=== PATIENT | female | born 1935 | race Caucasian/White ===

== ENCOUNTER 2024-02-03 10:18 | Day surgery (SDC) | payer MEDICARE, SELFPAY ==
[2024-02-03 10:58] VITALS: BMI 18.3
[2024-02-03 11:08] VITALS: BP 133/55
--- NOTE | 2024-02-03 12:20 | W.ICD.CONTRA ---
Post ICD/SERVICE CENTER MANAGER-D
-
History of OK?: Yes
LV Function
Left ventricular function study result?: Ejection Fraction </= 35%
ACEI/ARB/ARNI
Patient already on ACEI/ARB/ARNI: Yes
Beta-Gisela
Patient already on Beta Gisela: Yes
--- NOTE | 2024-02-03 15:46 | ITS.CL.ICD ---
Golf Course Starter - ICD
Implantable Cardioverter Defibrillator
Procedure Report:
ICD GENERATOR CHANGE REPORT
Date of Procedure: February 03, 2024
Primary Care Provider: Dr. Moises Wells
Primary subway car repairer: Dr Yousif Bobo
PROCEDURES:
1. Removal of SKIP OPERATOR-ICD Generator, 2. SKIP OPERATOR-ICD Implant
INDICATION FOR PROCEDURE:
1. ICD at [facility]
2. CARDIOMYOPATHY
CHF Class 3
EF 30%
Life expectancy > 1 yr
'Time-out' was called and confirmed. The patient was prepped and draped in sterile fashion. Lidocaine with epi was used for local anesthesia. An incision was made along the previous incision and the device and leads were carefully dissected from
the pocket. Hemostasis was obtained with electrocautery. The leads were from the device header and tested using an external analyzer. The pocket was liberally irrigated with antibiotic solution. Once testing (see below) showed adequate
and stable function, the leads were connected to the generator header and the leads and generator were placed within the pocket. The pocket was closed in the typical fashion.
Antibiotic pouch placed.
EXISTING ICD Medtronic
IMPLANTED ICD: MEDTRONIC [id number], [id number]
EXISTING LEADS:
RA: Medtronic [id number] implanted February 12, 2017
RV: Medtronic [id number] implanted June 15, 2017
LV: Medtronic [id number] implanted June 15, 2017
DEVICE TESTING:
Sensing: RA 2.1 mV, RV (no escape)
Capture: RA (AF) V@ 0.4 ms, RV 0.75 V@ 0.4 ms, LV 1.5 V@ 0.4 ms,
Ohms: RA 507, RV 304, LV 551
FINAL PROGRAMMING:
Mika Pacing: VVIR 70-130 ppm
Tachy parameters:
VF: 188 bpm, ATP while charging, Shock
CONCLUSIONS:
1. Explant of ICD at [facility] [facility]
2. Successful implant ICD generator.
3. Normal function of ICD and leads at implant testing.
Of note there was some discussion regarding attempting to place the device sub-pectoral however she is so thin there there would essentially be no benefit cosmetically which was her concern. Therefore the device was placed back within its original
pocket.
RECOMMENDATIONS:
1. Observation and consideration for discharge home later today.
2. In-Office wound check in 7 - 10 days.
Copy to:
Dr. Moises Wells
Dr Yousif Bobo
[2024-02-03 15:54] VITALS: BP 121/66
[2024-02-03 16:09] VITALS: BP 128/68
[2024-02-03 16:24] VITALS: BP 142/97
[2024-02-03 16:35] VITALS: BP 137/65
== END 2024-02-03 16:59 | disposition home or self-care (01) ==
LOC: CATH 10:18
PROVIDERS: ATTENDING PHYSICIAN Internal Medicine Cardiovascular Disease; FAMILY PHYSICIAN Internal Medicine Geriatric Medicine; OTHER PHYSICIAN Internal Medicine Cardiovascular Disease
DX: Z45.02 Encounter for adjustment and management of automatic implantable cardiac defibrillator (principal); I42.8 Other cardiomyopathies; I11.0 Hypertensive heart disease with heart failure; I50.9 Heart failure, unspecified; I48.0 Paroxysmal atrial fibrillation; I12.9 Hypertensive chronic kidney disease with stage 1 through stage 4 chronic kidney disease, or unspecified chronic kidney disease; N18.30 Chronic kidney disease, stage 3 unspecified
CPT/HCPCS: 33264; C1882

== ENCOUNTER 2024-06-29 09:46 | Emergency (ER) | payer MEDICARE, SELFPAY ==
--- NOTE | 2024-06-29 09:49 | ED.GENMED ---
History of Present Illness
General
Chief Complaint: CVA/TIA Symptoms
Source: patient and ambulance crew
Exam Limitations: none
Time Seen by Provider: 06/29/24 09:48
History of Present Illness
History of Present Illness:
88yoF with a history of atrial fibrillation on Eliquis, CHF, pulmonary hypertension, hypertension, hyperlipidemia, CKD presenting via EMS as a prehospital stroke alert. Patient was speaking to her daughter this morning and her daughter started to
notice a left facial droop and slurred speech. Time of onset was 9:20am. Daughter immediately called EMS. Patient also states that her left side feels 'numb-vivi.' She denies any headache, dizziness, visual changes, weakness.
Past History
Past History
ED Past Medical History: Arrthythmia (afib), CHF, HTN, Hypercholesterolemia, [place], Other (mitral regurgitation) and Other (osteoarthritis, cataracts, glaucoma)
ED Past Surgical History: Cardiac (Mitral valve replacement, Pacemaker), Gynecological (hysterectomy), Orthopedic (bilateral knee surgery) and Other (lumpectomy)
Social History
Tobacco: Non-smoker
Alcohol: Daily (Wine 1 glass)
Drug: None
Personal:
Living: alone
Family History
Family History: Other
Phy Exam
General Physical Exam
General Presentation: well appearing and no apparent distress
General Skin: warm and dry
General Habitus: normal
General Mental: alert
ENT Exam
ENT Exam: normocephalic
Cardiovascular Exam
Cardiovascular Exam: regular rate/rhythm
Pulmonary Exam
Pulmonary Exam: lungs clear, no respiratory distress, no rales, no crackles and no rhonchi
Neurological Exam
Neurological Exam: alert and other (Minor L facial droop noted with mild dysarthria. No aphasia. CN 2-12 otherwise intact. Negative drift x4. )
[place] Coma Scale
Eye Opening: Spontaneous
Verbal Response: Oriented
Motor Response: Obeys Commands
GCS Total Score: 15
Skin Exam
Skin Exam: normal color and warm/dry
Psychiatric Exam
Psychiatric Exam: normal mood/affect
Scores
NIH Stroke Score
Level of Consciousness: 0 - Alert
LOC Questions: 0-Answers both correctly
LOC Commands: 0-Performs both correctly
Best Horizontal Gaze: 0-Normal
Visual Toscano: 0=Normal, no visual loss
Facial Palsy: 1=Minor paralysis
Motor - Right Arm: 0=No drift 10 seconds
Motor - Left Arm: 0=No drift 10 seconds
Motor - Right Le-No drift 5 seconds
Motor - Left Le-No drift 5 seconds
Limb Ataxia: 0-Absent
Sensation: 0-Normal
Best Language: 0-No aphasia
Dysarthria: 1-Mild slurring
Extinction and Inattention: 0-No abnormality
Total Score:: 2
Course
Orders/Labs/Results
Orders:
Orders
06/29/24 09:47
CT HEAD STROKE ALERT W/o Cont Urgent
Comment:
Reason For Exam: facial droop, L sided numbness
06/29/24 09:48
Electrocardiogram (*1) Stat
Reason for Study: Other
Other Reason for Exam: neuro symptoms
Bedside Glucose- Treatment ONCE
Cardiac Monitoring- Treatment ONCE
EKG- Treatment ONCE
06/29/24 09:50
NEUROLOGY CONSULT Urgent
Consulting Provider: Jose Gómez
Was physician already notified: Yes
Reason for consult: stroke alert
06/29/24 09:54
US Cerebrovascular Routine
Comment:
Reason For Exam: stenosis
06/29/24 10:09
Interrogate Pacemaker- Treatment ONCE
06/29/24 10:13
Cardiovascular Evaluation Urgent
Comment: ADD ON
Complete Blood Count/With Diff Urgent
Comprehensive Metabolic Panel Urgent
Erythrocyte Sed Rate Urgent
Comment: ADD ON
Ferritin Routine
Comment: ADD ON
Folate Routine
Comment: ADD ON
Free T4 Routine
PTT Urgent
Prothrombin Time Urgent
TSH Reflex To Free T4 Routine
Comment: ADD ON
Troponin I Urgent
Vitamin B12 Routine
Comment: ADD ON
06/29/24 12:12
Add On- LAB Routine
Comments:: Please add to today's labs or draw as routine
Tests Added?: TSH reflex, Ferritin, Folate, Vit. B12, ESR
06/29/24 13:46
Add On- LAB Urgent
Tests Added?: lipid profile
Abnormal Lab Results
06/29/24 06/29/24
09:49 10:13
RBC 3.36 L 10^6/uL
(4.20-5.40)
Hgb 10.8 L g/dL
(12.0-16.0)
Hct 32.9 L %
(37.0-47.0)
MCH 32.1 H pg
(27.0-31.0)
MCHC 32.8 L g/dL
(33.0-37.0)
Absolute Monos (auto) 0.7 H 10^3/uL
(0.1-0.6)
PT 16.1 H Sec
(11.4-14.6)
Chloride 108 H mmol/L
(98-107)
Carbon Dioxide 20 L mmol/L
(22-30)
BUN 21 H mg/dl
(7-17)
Glucose 113 H mg/dl
(70-99)
TSH (Reflex) 0.28 L uIU/ml
(0.47-4.68)
POC Glucose 108 H mg/dl
(70-99)
06/29/24 10:13
06/29/24 10:13
Vital Signs
Initial and Last Documented VS:
Initial Vital Signs
Pulse Resp Pulse Ox
70 18 98
06/29/24 09:58 06/29/24 09:58 06/29/24 09:58
Last Documented Vital Signs
Temp Pulse Resp BP Pulse Ox
98.3 F 70 15 137/67 98
06/29/24 10:08 06/29/24 11:30 06/29/24 11:30 06/29/24 13:55 06/29/24 13:55
MDM/Problems Addressed
Differential Diagnosis Includes:
88yoF here with a L facial droop and slurred speech that started <1 hour ago. Arrived as a prehospital stroke alert. Hx of afib on Eliquis. VSS. Mild facial droop and dysarthria noted on exam. No drift in the extremities. NIHSS 2. Differential
diagnosis includes but is not limited to: TIA, CVA, arrhythmia
Initial ED plan: Neurology at bedside on patient arrival. Will check CT head, EKG, and labs per protocol.
*EKG
Interpreted by ED Provider?: Yes
EKG Intrepretation Date: 06/29/24
Heart Rate: 70
Rate: normal
Rhythm: ventricular paced
Ischemia: no ischemia
*Critical Care Note
Total Time (30-74mins, 75-104mins- exclusive of procedures): Not Applicable
Update Note
Update Note:
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 Labs unremarkable and glucose within normal limits. EKG shows ventricular paced rhythm. No events on pacemaker interrogation. Carotid ultrasound obtained
per neurology recommendations. Ultrasound shows small amount of calcified plaque within the right and left carotids, stenosis less than 50%. On reassessment, symptoms have completely resolved. Daughter at bedside confirms that her speech is now
normal. Discussed plan with neurology. Suspect TIA. Patient is medically optimized as she is currently on a statin and Eliquis. Her ICD likely precludes MRI. Per neurology, no indication for hospitalization at this time. Will discharge with
plan for outpatient PCP and neurology follow-up. Strict ED return precautions discussed including any new or worsening neurologic symptoms. Patient and daughter in agreement with plan. She was discharged in stable condition.
ED Attending Note
-
Portions of this chart may have been created with voice recognition software.� Occasional wrong word or��sound alike� substitutions may have occurred due to the inherent limitations of voice recognition software.
Discharge Plan
Departure
Patient Disposition: Home (Routine Discharge)
Date of Disposition: 06/29/24
Time of Disposition: 13:21
Patient with high blood pressure during this ER visit?: No
Discharge Problem:
Facial droop
Instructions: Transient Ischemic Attack ED
Prescriptions:
No Action
latanoprost 1 DROP drops
1 drp BOTH EYES HS
multivitamin with folic acid [Tab-A-Angelina] 1 TABLET tablet
1 tab PO NOON
folic acid 1 MG tablet
1 mg PO DAILY 0RF
amoxicillin 500 MG capsule
500 mg PO BID
Patient Comments:
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
atorvastatin 20 MG tablet
20 mg PO QPM 30 Days Qty: 30 0RF
carvedilol 6.25 MG tablet
6.25 mg PO TID 30 Days Qty: 90 0RF
biotin 1 mg Tablet
1 mg PO NOON
cholecalciferol (vitamin D3) [Vitamin D3] 25 mcg (1,000 unit) Tablet
25 mcg PO NOON
furosemide 40 MG tablet
20 mg PO DAILY
spironolactone 25 MG tablet
25 mg PO QPM
lisinopril 2.5 MG tablet
2.5 mg PO QPM
loperamide 2 mg Capsule
2 mg PO Q4H PRN (Reason: diarrhea)
mesalamine 1.2 gram Tablet,Delayed Release (Dr/Ec)
9.6 g PO QPM
melatonin 5 mg Tablet
5 mg PO HS
apixaban 2.5 mg Tablet
2.5 mg PO BID
potassium chloride 20 mEq Tablet Extended Release
10 meq PO DAILY
tramadol 50 MG tablet
50 mg PO BID
acetaminophen [Pain Relief ES (acetaminophen)] 500 mg tablet
1,000 mg PO QID PRN (Reason: mild pain)
Referrals:
Jose Gómez MD [Active] -
Yousif Bobo MD [Family Provider] -
Activity Restrictions/Additional Instructions:
Continue taking Eliquis and atorvastatin.
Please call your family doctor to make a follow-up appointment in the next 2-3 days. You should also follow-up with neurology.
Return to the ER immediately with any new or worsening symptoms.
Interventions
Interventions:
*Risk Screen - Suicide Last Done: 06/29/24 09:58
*General Assessment Last Done: 06/29/24 09:58
*Neglect/Abuse Screening Last Done: 06/29/24 09:58
ED- Fall Risk Assessment Last Done: 06/29/24 09:58
*ED COVID-19 Vaccine History Last Done: 06/29/24 10:07
*Nursing Disposition Last Done: 06/29/24 14:02
ED- Cardiac Assessment Last Done: 06/29/24 09:58
ED- Neurological Assessment Last Done: 06/29/24 09:58
ED- Pulmonary Assessment Last Done: 06/29/24 09:58
ED Swallowing Screen Last Done: 06/29/24 13:00
Discharge Date and Time
Discharge Date/Time: 06/29/24 14:03
Print Language: KOREAN
--- NOTE | 2024-06-29 09:50 | CON.NEURO ---
Neuro Assessment/Plan
Assessment
Acute onset of left facial weakness with concomitant slurred speech, resolved in a patient utilizing apixaban routinely.
Most likely secondary to transient ischemic attack based on the patient's cardiovascular risk factors as well as absence of additional concomitant symptoms
Patient was not a candidate for either tenecteplase or intra-arterial thrombectomy due to NIH stroke scale less than 6
Plan
Continue the patient's usual apixaban based on minimal symptoms
Check carotid ultrasound for significant stenosis that may require surgical remediation
No clear need at this time for rehabilitation evaluations or treatment
Check a lipid profile, continue atorvastatin, increase dosing from 20 mg if LDL greater than 70
Will follow pending results
Consultation
Order
Date of Consultation: 06/29/24
Requesting Provider: Emergency department provider
Reason for Consult: Stroke alert
Subjective/Objective
Subjective Data
Date of Service: June 29, 2024
Patient presented to this [facility] emergency department by EMS due to sudden onset of left facial weakness and slurred speech which has resolved with the exception of a sense of left-sided facial numbness which is persistent. The patient has not
had a prior episode which is similar. She is not aware of factors which improve or worsen this problem. There are no known modifying factors. There have been no new changes in medical history.
Objective Data
Patient Allergies
No Known Allergies Allergy (Verified 02/03/24 11:00)
Review of Systems
-
History Source: Patient
All other systems: Reviewed and negative
EENT: Negative Swallowing Difficulty
Respiratory: Negative Trouble Breathing
Cardiac: Negative Chest Pain
Musculoskeletal: Negative Back Pain or Neck Pain
Neuro: Negative Dizzy or Headache
Physical Exam
-
General: No Apparent Distress and Appears Stated Age
Eyes: OU Absent Papilledema, Round OU, Rocky Conjunctivae and No Ptosis
HEENT: Anicteric and Moist Mucous Membranes
Neck: Full Range of Motion
Respiratory: No Dyspnea
Cardiac: No JVD
GI: Non-distended
Skin: Unremarkable
Extremities: No Clubbing, No Cyanosis and No Edema
Psych: Intact Judgement/Insight
Extended Neurological Exam
Mood & Affect: Mood Unremarkable and Affect Unremarkable
Attention Span & Concentration: Awake, Alert, Interactive and No Difficulty with 2 Step Request
Memory: Unremarkable
Tremor: Hand Tremor Absent and Head Tremor Absent
Speech: Quality Unremarkable and Quantity Unremarkable
Cranial Nerve II: Left Eye: Pupillary Reactivity Unremarkable, Pupillary Size Unremarkable and Visual Toscano Intact
Cranial Nerve II: Right Eye: Pupillary Reactivity Unremarkable, Pupillary Size Unremarkable and Visual Toscano Intact
Cranial Nerves III, IV, : Extraocular Movement: Extraocular Movement Full in all Directions
Cranial Nerve VII: Facial Symmetry: Normal Facial Symmetry
Cranial Nerve VIII: Hearing: Unremarkable Hearing to Normal Conversational Volume
Cranial Nerves IX, X: Palate Movement: Palate Elevation Symmetric
Cranial Nerve XI: Shoulder Shrug: Unremarkable
Cranial Nerve XII: Tongue Protusion: Midline
Muscle Strength, Overall: Full Throughout
Muscle Bulk & Tone: Bulk Unremarkable and Tone Unremarkable
Pronator Drift: No Drift in Upper Extremities
Touch Sensation: Unremarkable
Coordination: [id number] Testing Unremarkable
Data Reviewed
-
CT Head: Report Reviewed and Image Reviewed
Labs: Report Reviewed
Reviewed with: Nurse, Nurse Practioner, Physician Candy Maker and Patient
Old Records: Summarized
Medications
-
Home Medications
�Medication �Instructions �Recorded
latanoprost 0.005 % eye drops 1 drp BOTH EYES HS Eye condition 02/09/17
multivitamin with folic acid 400 1 tab PO NOON Supplement 06/08/17
mcg tablet (Tab-A-Angelina)
folic acid 1 mg tablet 1 mg PO DAILY Supplement 04/18/21
amoxicillin 500 mg capsule 500 mg PO BID Infection 08/05/21
atorvastatin 20 mg tablet 20 mg PO QPM 30 days #30 tabs 08/09/21
carvedilol 6.25 mg tablet 6.25 mg PO TID Blood pressure 30 08/09/21
days #90 tabs
biotin 1 mg tablet 1 mg PO NOON Supplement 11/09/22
cholecalciferol (vitamin D3) 25 25 mcg PO NOON Supplement 11/09/22
mcg (1,000 unit) tablet (Vitamin
D3)
furosemide 40 mg tablet 20 mg PO DAILY Fluid 11/09/22
Retention/Swelling
lisinopril 2.5 mg tablet 2.5 mg PO QPM Blood Pressure 11/10/22
spironolactone 25 mg tablet 25 mg PO QPM Fluid 11/10/22
Retention/Swelling
acetaminophen 500 mg tablet (Pain 1,000 mg PO QID PRN mild pain 02/03/24
Relief Extra Strength
(acetaminophen))
apixaban 2.5 mg tablet 2.5 mg PO BID 02/03/24
loperamide 2 mg capsule 2 mg PO Q4H PRN diarrhea 02/03/24
melatonin 5 mg tablet 5 mg PO HS 02/03/24
mesalamine 1.2 gram tablet,delayed 9.6 g PO QPM 02/03/24
release
potassium chloride 20 mEq 10 meq PO DAILY 02/03/24
tablet,extended release
tramadol 50 mg tablet 50 mg PO BID Neurological Condition 02/03/24
Past History
Past History
ED Past Medical History: Arrthythmia (afib), CHF, HTN, Hypercholesterolemia, [place], Other (mitral regurgitation) and Other (osteoarthritis, cataracts, glaucoma)
ED Past Surgical History: Cardiac (Mitral valve replacement, Pacemaker), Gynecological (hysterectomy), Orthopedic (bilateral knee surgery) and Other (lumpectomy)
Social History
Tobacco: Non-smoker
Alcohol: Daily (Wine 1 glass)
Drug: None
Personal:
Living: alone
Family History
Family History: Other
[2024-06-29 09:51] LABS: Glucose - Point of Care 108 mg/dl (70-99)
[2024-06-29 09:58] VITALS: BMI 17.6
[2024-06-29 10:29] LABS: % Basophils 0.8 % (0-2); % Eosinophils 0.9 % (0-6); % Immature Granulocytes 0.1 % (0-0.5); % Lymphocytes 21.7 % (20.5-51.1); % Monocytes 9.3 % (1.7-9.3); % Neutrophils 67.2 % (42.2-75.2); Absolute Basophils 0.1 10^3/uL (0-0.2); Absolute Eosinophils 0.1 10^3/uL (0-0.7); Absolute Lymphocytes 1.6 10^3/uL (1.2-3.4); Absolute Monocytes 0.7 10^3/uL (0.1-0.6); Hematocrit 32.9 % (37.0-47.0); Hemoglobin 10.8 g/dL (12.0-16.0); Mean Corp Hgb Conc. 32.8 g/dL (33.0-37.0); Mean Corpuscular Hgb 32.1 pg (27.0-31.0); Mean Corpuscular Volume 97.9 fL (81.0-99.0); Mean Platelet Volume 9.6 fL (7.4-10.4); Nucleated Red Blood Cells % 0 %; Platelet Count 158 10^3/uL (130-400); Red Blood Cell Count 3.36 10^6/uL (4.20-5.40); White Blood Cell Count 7.4 10^3/uL (4.8-10.8)
[2024-06-29 10:34] LABS: APTT 30.9 Sec (23.4-35.0); INR 1.27; PT 16.1 Sec (11.4-14.6)
[2024-06-29 10:38] LABS: ALT (SGPT) 18 U/L (0-35); AST (SGOT) 23 U/L (14-36); Albumin 3.8 g/dl (3.5-5.0); Alkaline Phosphatase 84 U/L (38-126); Blood Urea Nitrogen 21 mg/dl (7-17); Calcium 9.8 mg/dl (8.4-10.2); Carbon Dioxide 20 mmol/L (22-30); Chloride 108 mmol/L (98-107); Estimated Creatinine Clearance 31 ml/min; Glucose 113 mg/dl (70-99); Potassium 4.6 mmol/L (3.5-5.1); Sodium 138 mmol/L (135-145); Total Bilirubin 0.5 mg/dl (0.2-1.3); Total Protein 6.4 g/dl (6.3-8.2); eGFR 54.19
[2024-06-29 10:49] LABS: Troponin I 0.012 ng/ml
[2024-06-29 11:00] VITALS: BP 119/64
[2024-06-29 13:55] VITALS: BP 137/67
[2024-06-29 14:19] LABS: Erythrocyte Sed Rate 6 mm/hour (0-20)
[2024-06-29 14:24] LABS: HDL Cholesterol 73 mg/dl; LDL Cholesterol, Calculated 51 mg/dl; Total Cholesterol 137 mg/dl (50-199); Triglyceride 68 mg/dl (10-149); Very Low Density Lipoprotein 13 mg/dl (0-30)
[2024-06-29 15:50] LABS: TSH Reflex To Free T4 0.28 uIU/ml (0.47-4.68)
[2024-06-29 16:17] LABS: Free T4 1.48 ng/dl (0.78-2.19)
[2024-06-29 16:25] LABS: Folate > 20.0 ng/ml (2.76-20); Vitamin B12 708 pg/ml (239-931)
== END 2024-06-29 14:03 | disposition home or self-care (01) ==
LOC: EMR 09:46
PROVIDERS: Physician Assistant; CONSULT PHYSICIAN Psychiatry & Neurology Neurology; EMERGENCY PHYSICIAN Emergency Medicine; FAMILY PHYSICIAN Internal Medicine Geriatric Medicine
DX: R29.810 Facial weakness (principal); I48.91 Unspecified atrial fibrillation; I13.0 Hypertensive heart and chronic kidney disease with heart failure and stage 1 through stage 4 chronic kidney disease, or unspecified chronic kidney disease; I50.9 Heart failure, unspecified; N18.9 Chronic kidney disease, unspecified; E78.00 Pure hypercholesterolemia, unspecified; I27.20 Pulmonary hypertension, unspecified; M19.90 Unspecified osteoarthritis, unspecified site; Z79.01 Long term (current) use of anticoagulants; Z86.73 Personal history of transient ischemic attack (TIA), and cerebral infarction without residual deficits; Z90.710 Acquired absence of both cervix and uterus; Z95.0 Presence of cardiac pacemaker; Z95.2 Presence of prosthetic heart valve; Z96.653 Presence of artificial knee joint, bilateral
CPT/HCPCS: 99284; 70450; 80053; 80061; 82607; 82728; 82746; 82962; 84439; 84443; 84484; 85025; 85610; 85652; 85730; 93005; 93880

== ENCOUNTER 2024-10-08 13:35 | Inpatient (IN) | payer MEDICARE, SELFPAY ==
[2024-10-08] VITALS (16 sets, daily range): BP systolic 94–147; BP diastolic 29–78; BMI 16.1; BMI 15.7
[2024-10-08 10:33] LABS: % Basophils 0.2 % (0-2); % Eosinophils 0.1 % (0-6); % Immature Granulocytes 0.3 % (0-0.5); % Lymphocytes 5.4 % (20.5-51.1); % Monocytes 5.1 % (1.7-9.3); % Neutrophils 88.9 % (42.2-75.2); Absolute Lymphocytes 0.7 10^3/uL (1.2-3.4); Absolute Monocytes 0.6 10^3/uL (0.1-0.6); Absolute Neutrophils 10.9 10^3/uL (1.4-6.5); Hematocrit 33.1 % (37.0-47.0); Hemoglobin 11.2 g/dL (12.0-16.0); Mean Corp Hgb Conc. 33.8 g/dL (33.0-37.0); Mean Corpuscular Hgb 32.3 pg (27.0-31.0); Mean Corpuscular Volume 95.4 fL (81.0-99.0); Mean Platelet Volume 9.5 fL (7.4-10.4); Nucleated Red Blood Cells % 0 %; Platelet Count 222 10^3/uL (130-400); Red Blood Cell Count 3.47 10^6/uL (4.20-5.40); Red Cell Dist. Width 14.7 % (11.5-14.5); White Blood Cell Count 12.3 10^3/uL (4.8-10.8)
[2024-10-08 10:41] LABS: Carbon Dioxide 17 mmol/L (22-30)
[2024-10-08 10:52] LABS: ALT (SGPT) 15 U/L (0-35); AST (SGOT) 20 U/L (14-36); Albumin 3.5 g/dl (3.5-5.0); Alkaline Phosphatase 117 U/L (38-126); Blood Urea Nitrogen 39 mg/dl (7-17); Calcium 10.2 mg/dl (8.4-10.2); Chloride 107 mmol/L (98-107); Glucose 99 mg/dl (70-99); Potassium 5.2 mmol/L (3.5-5.1); Sodium 136 mmol/L (135-145); Total Bilirubin 0.7 mg/dl (0.2-1.3); Total Protein 6.4 g/dl (6.3-8.2); eGFR 48.33
--- NOTE | 2024-10-08 11:15 | ED.GENMED ---
History of Present Illness
General
Chief Complaint: Weakness
Source: patient, records and family
Time Seen by Provider: 10/08/24 11:05
History of Present Illness
History of Present Illness:
88-year-old female with past medical history of permanent A-fib status post Medtronic pacemaker placement, previous endocarditis, valvular disease, cardiomyopathy, GERD, hypothyroidism presenting to the emergency department from her independent
living at [facility] for evaluation of cough, shortness of breath and generalized weakness/fatigue that have been ongoing for the last 2 days. Patient states it feels as if she 'just has a minor cold' but family notes that she has had an
increased work of breathing and appears dyspneic with exertion or with speaking. Patient does note that another resident who she normally plays peanuckle with had a little cold this past week. She denies any known fevers, chills, rigors, current
chest pain, palpitations, diaphoresis, lower extremity edema or any other concerns. No medications prior to arrival.
Past History
Past History
ED Past Medical History: Arrthythmia (afib), CAD, CHF, HTN, Hypercholesterolemia, [place], Valvular disease, Hypothyroidism, Other (mitral regurgitation) and Other (osteoarthritis, cataracts, glaucoma)
ED Past Surgical History: Cardiac (Mitral valve replacement, Pacemaker), Gynecological (hysterectomy), Orthopedic (bilateral knee surgery) and Other (lumpectomy)
Social History
Tobacco: Non-smoker
Alcohol: Occasional (Wine 1 glass)
Drug: None
Personal:
Living: assisted living
Family History
Family History: Other
Review of Systems
Review of Systems
All Other Systems: ROS reviewed and negative except as documented in HPI and ROS
Phy Exam
Physical Exam
Physical Exam:
GENERAL: Alert , in no apparent distress but patient does have an increased work of breathing and wet nonproductive coughing throughout the exam
EYE: Clear conjunctiva
NECK: Supple
ENT: o/p clr, mmm.
CARDIAC: Regular rate and rhythm .
LUNGS: Rhonchorous lung sounds throughout but more prominent in the right mid to lower lung zones posteriorly, faint wheezing
ABDOMEN: Soft, without focal tenderness, no r/g, no cvat
NEUROLOGICAL: Alert and oriented
SKIN: Warm and dry, skin intact.
MUSCULOSKELETAL: No edema, hyperpigmentation from peripheral vascular disease is baseline per patient and family
PSYCH: Normal and appropriate interaction.
Scores
Heart Failure Risk
Heart Failure Risk Score: Not Applicable
Heart Score for Chest Pain Patients
STEMI patient?: Not applicable
Withdrawal Assessment of Alcohol
Withdrawal Assessment Completed?: Not applicable
Course
Orders/Labs/Results
Orders:
Orders
10/08/24 10:06
COVID-19 Antigen Urgent
Source: Nasal Swab
Complete Blood Count/With Diff Urgent
Comprehensive Metabolic Panel Urgent
Influenza A+B Rapid Molecular Urgent
ILIR Source: Nasal Swab
Specimen Description:
10/08/24 10:30
CR Chest - 2 Views Urgent
Comment:
Reason For Exam: cough + weakness
10/08/24 11:14
Ipratropium/Albuterol Sulfate [Duoneb] 3 ml INH R NOW ONE
Tramadol HCl [Ultram] 50 mg PO NOW STA
10/08/24 11:16
Interrogate Pacemaker- Treatment ONCE
10/08/24 11:18
NT-proBNP Urgent
Troponin I Urgent
10/08/24 11:20
Electrocardiogram (*1) Urgent
Reason for Study: Shortness of Breath
EKG- Treatment ONCE
10/08/24 11:43
CefTRIAXone [Rocephin] 1,000 mg IV NOW STA
Doxycycline [Vibramycin] 100 mg PO NOW STA
10/08/24 12:51
Admit/Transfer Patient As Directed
Co-Sign Provider:
Level of Care: Inpatient admission
Assign to:: Telemetry
Physician / Group: hospitalist
Diagnosis: community acquired pneumonia
Reason for Telemetry: AICD/pacer dependent
Date to Stop Telemetry: 10/11/24
Time to Stop Telemetry: 11:00
Reason for Hospitalization: Community acquired pneumonia, IV antibiotics
Expected length of stay greater than two midnights?: Yes
ELOS- Estimated Length of Stay in days: 3
I certify the patient meets the requirements for IP care: Yes
10/08/24 12:52
PRN Pain Medication Management As Directed
May give lesser potent ordered pain med per pt: Yes
preference::
Protocol:: Medication orders for pain may be administered in a
manner that supports deferring to patient preference
when the pt is:
- Requesting an ordered lesser potent pain medication.
Least to most potent pain medications are defined
as: acetaminophen < NSAID < tramadol < opioids
(morphine, oxycodone, hydromorphone).
- Requesting a lesser dose of the same medication IF
ORDERED.
- Requesting a less intrusive route of administration
if both routes are prescribed by the provider (PO <
IV).
10/08/24 12:54
Code Status As Directed
Resuscitation Status: Do not resuscitate
Reached after discussion with pt or family/Healthcare POA: Yes
DNR Bracelet Application ONCE
10/08/24 16:45
Activity As Directed
Activity Level: As Tolerated
Notify MD As Directed
Notify physician if: Bridge Admission orders placed.
Notify attending physician:
-- upon arrival to unit
OR
-- when patient is identified as an ED hold
Vital Signs As Directed
Frequency: Per unit guidelines
O2 Therapy [RESP] Routine
Titrate/Wean O2 to maintain O2 sat greater than (%): 92
10/08/24 20:00
Apixaban [Eliquis] 2.5 mg PO BID
10/11/24 11:00
DC Protocol for Telemetry ONCE
Abnormal Lab Results
10/08/24
10:06
WBC 12.3 H 10^3/uL
(4.8-10.8)
RBC 3.47 L 10^6/uL
(4.20-5.40)
Hgb 11.2 L g/dL
(12.0-16.0)
Hct 33.1 L %
(37.0-47.0)
MCH 32.3 H pg
(27.0-31.0)
RDW 14.7 H %
(11.5-14.5)
Absolute Neuts (auto) 10.9 H 10^3/uL
(1.4-6.5)
Absolute Lymphs (auto) 0.7 L 10^3/uL
(1.2-3.4)
Neutrophils % 88.9 H %
(42.2-75.2)
Lymphocytes % 5.4 L %
(20.5-51.1)
Potassium 5.2 H mmol/L
(3.5-5.1)
Carbon Dioxide 17 L mmol/L
(22-30)
BUN 39 H mg/dl
(7-17)
Creatinine 1.1 H mg/dL
(0.6-1.0)
10/08/24 10:06
10/08/24 10:06
Vital Signs
Initial and Last Documented VS:
Initial Vital Signs
Temp Pulse Resp BP Pulse Ox
97.9 F 71 20 131/56 96
10/08/24 09:56 10/08/24 09:56 10/08/24 09:56 10/08/24 09:56 10/08/24 09:56
Last Documented Vital Signs
Temp Pulse Resp BP Pulse Ox
97.9 F 71 17 147/67 96
10/08/24 09:56 10/08/24 16:30 10/08/24 16:30 10/08/24 16:00 10/08/24 16:30
MDM/Problems Addressed
Differential Diagnosis Includes:
Pneumonia, bronchitis, asthma/COPD, COVID/flu or other viral etiology, CHF exacerbation, atypical ACS
MDM/Problems Addressed:
88-year-old female presenting to the ER for evaluation of gradually worsening shortness of breath and URI like symptoms over the last 2 to 3 days. Known sick contact at her independent living facility. Afebrile here however mildly hypoxic and
tachycardia at time of my exam. Placed on 2 L nasal cannula with patient reporting increased comfort on 2 L. Labs initiated on arrival show a leukocytosis of 12,000 as well as bicarb of 17 and a mild BRITTA. COVID and flu testing pending. Chest
x-ray ordered. Patient normally takes 50 mg of tramadol for chronic back pain but did not take this this morning so is requesting a dose of this. Will also treat with DuoNeb. Anticipate admission.
Chronic conditions affecting care: CAD, Cardiomyopathy and Arrhythmia
*Radiology
Radiology exam reviewed: preliminary read by ED provider (Right lower lobe pneumonia)
*Pulse Oximetry
Patient hypoxic: yes
*French Weaver Interpretation
Rate: normal
Rhythm: ventricular paced
*Critical Care Note
Total Time (30-74mins, 75-104mins- exclusive of procedures): Not Applicable
Data Reviewed
Review of Other/Old Records Reveals: Labs, Records and Progress Notes
Patient Management
Discussion with other providers: Hospitalist
Escalation/DeEscalation of care consider admission/obs:
Patient's chest x-ray shows a right lower lobe pneumonia. Given her age combined with chronic medical conditions as well as hypoxia will admit for antibiotic treatment and supportive care. Hospitalist team to admit.
ED Attending Note
-
Portions of this chart may have been created with voice recognition software.� Occasional wrong word or��sound alike� substitutions may have occurred due to the inherent limitations of voice recognition software.
Discharge Plan
Departure
Patient Disposition: Admit
Date of Disposition: 10/08/24
Time of Disposition: 11:50
Presentation/result/management discussed w/ accepting MD/DO: Hospitalist
Discharge Problem:
Pneumonia, BRITTA (acute kidney injury)
Interventions
Interventions:
*Risk Screen - Suicide Last Done: 10/08/24 09:56
*General Assessment Last Done: 10/08/24 09:56
*Neglect/Abuse Screening Last Done: 10/08/24 09:56
*ED- Fall Risk Assessment Last Done: 10/08/24 11:13
*ED COVID-19 Vaccine History Last Done: 10/08/24 09:56
ED- Cardiac Assessment Last Done: 10/08/24 11:14
ED- Neurological Assessment Last Done: 10/08/24 11:14
ED- Pulmonary Assessment Last Done: 10/08/24 11:14
[2024-10-08] MEDS: DUONEB 3 ML INH (11:21)
[2024-10-08] MEDS: ULTRAM 50 MG PO ×2 (11:21→19:08)
[2024-10-08 11:46] LABS: COVID-19 Antigen Negative (Negative)
[2024-10-08 11:50] LABS: Troponin I < 0.012 ng/ml
[2024-10-08] MEDS: ROCEPHIN 1000 MG IV (11:57)
[2024-10-08] MEDS: VIBRAMYCIN 100 MG PO ×2 (11:57→19:08)
[2024-10-08 12:07] LABS: NT-proBNP 4460 pg/ml
--- NOTE | 2024-10-08 13:56 | W.PN.UPDATE ---
Update Note
Progress Note Update
Seen and examined by me independently in collaboration with the auditor medical claims .
Past medical history/social history/medication/allergies reviewed.
Lab data and imaging data reviewed.
Patient without any underlying primary lung disease presents with a week of respiratory symptoms which included cough with productive phlegm and shortness of breath. No prior history of pneumonia. Denies any swallowing difficulty. Prior history
of infective endocarditis on chronic amoxicillin. Has a history of chronic heart failure but no increased weight or lower extremity edema. In fact weight has gone down lately.
Afebrile and not tachycardic but she has coarse crackles in the right base without wheeze. White count is elevated. Chest x-ray shows right middle lobe pneumonia.
All symptomatology concerning for community-acquired pneumonia involving right middle lobe.
Admit the telemetry with history of heart failure with reduced EF and ICD in place.
Continue ceftriaxone and doxycycline initiated in the ER. Will obtain blood and sputum culture. She is COVID and flu negative. Will follow clinical improvement with community-acquired pneumonia antibiotics.
Clinically she seems to be compensated from a heart failure standpoint-no lower extremity edema, no weight gain, and no JVD evident. Continue with the diuretic regimen. Follow weights daily.
CODE STATUS-patient made it clear that her wishes would be DNR and event of cardiac arrest and this was confirmed by the daughter at bedside in the ER.
--- NOTE | 2024-10-08 14:25 | HPS.HSE ---
Family Physician
-
Family Physician: Yousif Bobo
Chief Complaint
-
Cough and dyspnea
History of Present Illness
88 y/o female with past medical history of permanent A-fib and HFrEF status post ICD placement, previous endocarditis on amoxicillin 500 bid, CKD stage III and hypothyroidism presenting to the emergency department from her independent living at
[facility] for evaluation of productive cough, shortness of breath and generalized weakness/fatigue that have been ongoing for the past week, progressed since the past 2 days. Family notes that she has had increased work of breathing and
appears dyspneic with exertion or with speaking. Patient does note that another resident at [facility] had URI symptoms. She denies any known fevers, chills, rigors, current chest pain, palpitations, diaphoresis, lower extremity edema, nausea, vomiting,
diarrhea, urinary symptoms or any other concerns. No prior history of pneumonia.
Medical History
Past Medical History
Past Medical History: Reports Arrhythmia, CAD, CHF, HTN, Hypercholesterolemia, Hypothyroidism, [place], Renal Failure, Valvular Disease and Other (osteoarthritis, cataracts, glaucoma, Anemia of Chronic Disease, CKD Stage III)
Past Surgical History: Reports Cardiac (ICD, mitral valve replacement), Gynocological (hysterectomy), Orthopedic (Bilateral Total Knee Replacement) and Other (Partial Thyroidectomy, Bilateral Lumpectomy)
Social History
Tobacco: Non-smoker
Alcohol: Daily (One glass of wine)
Living: Alone
Family History
Family History: Not pertinent
Allergies / Home Medications
Allergies reflects when Allergies were last updated in [employer].
Home Medications with original date entered in [employer]
Allergy/Medication List:
Allergies
Allergy/AdvReac Type Severity Reaction Status Date / Time
No Known Allergies Allergy Verified 10/08/24 10:00
Home Medications
latanoprost 0.005 % eye drops 1 drp BOTH EYES HS Eye condition 02/09/17
multivitamin with folic acid 400 mcg tablet (Tab-A-Angelina) 1 tab PO NOON Supplement 06/08/17
folic acid 1 mg tablet 1 mg PO DAILY Supplement 04/18/21
amoxicillin 500 mg capsule 500 mg PO BID Infection 08/05/21
atorvastatin 20 mg tablet 20 mg PO QPM 30 days #30 tabs 08/09/21
carvedilol 6.25 mg tablet 6.25 mg PO TID Blood pressure 30 days #90 tabs 08/09/21
biotin 1 mg tablet 1 mg PO NOON Supplement 11/09/22
cholecalciferol (vitamin D3) 25 mcg (1,000 unit) tablet (Vitamin D3) 25 mcg PO NOON Supplement 11/09/22
lisinopril 2.5 mg tablet 2.5 mg PO QPM Blood Pressure 11/10/22
spironolactone 25 mg tablet 25 mg PO QPM Fluid Retention/Swelling 11/10/22
apixaban 2.5 mg tablet 2.5 mg PO BID 02/03/24
loperamide 2 mg capsule 2 mg PO DAILYPRN PRN diarrhea 02/03/24
melatonin 5 mg tablet 5 mg PO HS 02/03/24
mesalamine 1.2 gram tablet,delayed release 4.8 g PO QPM 02/03/24
potassium chloride 20 mEq tablet,extended release 10 meq PO DAILY 02/03/24
tramadol 50 mg tablet 50 mg PO BID Neurological Condition 02/03/24
acetaminophen 500 mg tablet 1,000 mg PO Q4H PRN mild pain 10/08/24
budesonide 3 mg capsule,delayed,extended release 3 mg PO DAILY 10/08/24
furosemide 20 mg tablet 20 mg PO DAILY 10/08/24
Review of Systems
-
History Source: Patient and Family
Constitutional: Denies Fever or Chills
EENT: Reports No Symptoms
Respiratory: Reports Cough and Trouble Breathing
Cardiac: Reports No Symptoms; Denies Chest Pain
Abdomen/GI: Reports No Symptoms
: Reports No Symptoms
Musculoskeletal: Reports No Symptoms
Skin: Reports No Symptoms
Neurological: Reports No Symptoms
Endocrine: Reports No Symptoms
Hematologic/Lymphatic: Reports No Symptoms
Psych: Reports No Symptoms
Physical Exam
Vital Signs
Vital Signs
Temp Pulse Resp BP Pulse Ox
97.9 F 70 24 101/48 95
10/08/24 09:56 10/08/24 13:30 10/08/24 13:30 10/08/24 13:00 10/08/24 13:30
Physical Exam
General: Well Developed, Well Nourished, Comfortable, Conversant (desats to high 80s while speaking) and Cachectic
HEENT: NormoCephalic
Respiratory: Crackles (Throughout the right lung, more pronounced at the base) and Non Labored Respirations; No Accessory Resp Muscle Use
Cardiac: S1/S2 and Regular Rhythm; No Peripheral Edema or JVD
GI: Soft, Non Tender, Non Distended and Normal Bowel Sounds
Genito-urinary: No costovertebral tender
Musculoskeletal: No Clubbing, No Cyanosis and No Edema
Skin: Warm
Neuro: Awake, Alert, Oriented and AO x 3
Hematologic/Lymphatic: No Lymphadenopathy
Psych: Calm
Laboratory Results
-
10/08/24 10:06
10/08/24 10:06
Laboratory Results
Total Bilirubin 0.7 mg/dl (0.2-1.3) 10/08/24 10:06
AST 20 U/L (14-36) 10/08/24 10:06
ALT 15 U/L (0-35) 10/08/24 10:06
Alkaline Phosphatase 117 U/L (38-126) 10/08/24 10:06
Troponin I < 0.012 ng/ml 10/08/24 11:18
Impression/Plan
-
IMPRESSION:
88 y/o f with pmhx of HFrEF, Afib s/p ICD on Eliquis, endocarditis on chronic amoxicillin, CKD stage III, hypothyroidism presenting with cough and dyspnea
# Cough and dyspnea
- Patient meets criteria for SIRS (wbc 12.3, rr 27), sepsis likely secondary to CAP
- Mild hypoxic, currently on 2L O2 via NC, wean as able
- CXR: right middle lobe opacification suspicious for pneumonia
- No wheeze on exam, patient does not look volume overloaded, low suspicion for cardiac etiology. proBNP 4460, troponin negative
- Low suspicion for PE
- No prior history of pneumonia
- Flu, COVID negative
- Sputum Cx and BCx ordered, patient had received bolus dose of ceftriaxone and doxycycline in the ED
- Continue ceftriaxone and doxy
- Hold MATERIALS CLERK amoxicillin
# A-fib status post ICD
- Continue MATERIALS CLERK Eliquis
- Admit tele
# HFrEF status post ICD
- Echo 2021: EF 30-35%
- Continue GDMT as tolerated
- No wheeze on exam, patient does not look volume overloaded, low suspicion for cardiac etiology. proBNP 4460, troponin negative
# CKD stage III
- Stable
- Mildly elevated Cr, 1.1 today
- Continue to trend
# Anemia of chronic disease
- Hgb stable
# History of endocarditis
- Hold MATERIALS CLERK amoxicillin
# Hypothyroidism
- Continue home meds
DVT prophylaxis Home Eliquis
DNR
[2024-10-08] MEDS: ZESTRIL 2.5 MG PO (18:10)
[2024-10-08] MEDS: LIPITOR 20 MG PO (18:10)
[2024-10-08] MEDS: LASIX 20 MG PO (18:10)
[2024-10-08] MEDS: ALDACTONE 25 MG PO (18:10)
[2024-10-08] MEDS: ENTOCORT EC 3 MG PO (18:11)
[2024-10-08] MEDS: COREG 6.25 MG PO ×2 (18:11→22:37)
[2024-10-08] MEDS: ELIQUIS 2.5 MG PO (19:08)
[2024-10-08] MEDS: MELATONIN 5 MG PO (22:35)
[2024-10-08] MEDS: XALATAN OPHTHALMIC SOLUTION 1 DROP BOTH EYES (22:35)
[2024-10-08] MEDS: TYLENOL 1000 MG PO (22:36)
--- NOTE | 2024-10-08 22:54 | PTCARENOTE ---
Pt arrived from ED to 3 west via stretcher. Pt able to walk into bed 318-2 with x1 assistance. Pt AAOx3 and on 2L O2 NC. Oriented to room, call jurado within reach. Will continue to monitor pt.
[2024-10-09] VITALS (9 sets, daily range): BP systolic 103–131; BP diastolic 37–67; PULSE 70; O2SAT 99; BMI 15.7
[2024-10-09 06:59] LABS: % Basophils 0.2 % (0-2); % Eosinophils 0.1 % (0-6); % Immature Granulocytes 0.5 % (0-0.5); % Lymphocytes 5.5 % (20.5-51.1); % Monocytes 6.6 % (1.7-9.3); % Neutrophils 87.1 % (42.2-75.2); Absolute Immature Granulocytes 0.1 10^3/uL (0-0.05); Absolute Lymphocytes 0.9 10^3/uL (1.2-3.4); Absolute Neutrophils 13.5 10^3/uL (1.4-6.5); Hematocrit 31.8 % (37.0-47.0); Hemoglobin 10.6 g/dL (12.0-16.0); Mean Corp Hgb Conc. 33.3 g/dL (33.0-37.0); Mean Corpuscular Hgb 32.1 pg (27.0-31.0); Mean Corpuscular Volume 96.4 fL (81.0-99.0); Mean Platelet Volume 9.5 fL (7.4-10.4); Nucleated Red Blood Cells % 0 %; Platelet Count 200 10^3/uL (130-400); Red Cell Dist. Width 14.4 % (11.5-14.5); White Blood Cell Count 15.5 10^3/uL (4.8-10.8)
[2024-10-09 07:24] LABS: Blood Urea Nitrogen 44 mg/dl (7-17); Calcium 9.5 mg/dl (8.4-10.2); Carbon Dioxide 18 mmol/L (22-30); Chloride 109 mmol/L (98-107); Estimated Creatinine Clearance 23 ml/min; Glucose 132 mg/dl (70-99); Potassium 5.1 mmol/L (3.5-5.1); Sodium 135 mmol/L (135-145); eGFR 43.54
[2024-10-09] MEDS: ULTRAM 50 MG PO ×2 (08:23→22:46)
[2024-10-09] MEDS: FOLVITE 1 MG PO (08:23)
[2024-10-09] MEDS: COREG 6.25 MG PO ×2 (08:23→22:45)
[2024-10-09] MEDS: LASIX 20 MG PO (08:23)
[2024-10-09] MEDS: ELIQUIS 2.5 MG PO ×2 (08:23→22:46)
[2024-10-09] MEDS: VIBRAMYCIN 100 MG PO ×2 (08:24→22:46)
[2024-10-09] MEDS: ENTOCORT EC 3 MG PO (09:26)
--- NOTE | 2024-10-09 09:26 | W.PN.HOSP.TC ---
Today's Communication/Plan
-
Speech evaluation
Initiated low-dose steroids
Blood culture pending
Continue ABX of ceftriaxone and Doxy
Assessment / Plan
Assessment / Plan
Impression:88 y/o female with past medical history of permanent A-fib and HFrEF status post ICD placement, previous endocarditis on amoxicillin 500 bid, CKD stage III and hypothyroidism presenting to the emergency department from her independent
living at [facility] for evaluation of productive cough, shortness of breath and generalized weakness/fatigue.
Plan:
# Cough and dyspnea secondary to CAP and acute bronchitis
- Currently on 2L O2 via NC, wean as able
- CXR 10/08: right middle lobe opacification suspicious for pneumonia
- Flu, COVID negative
- Sputum Cx and BCx pending
- Continue ceftriaxone and doxy
- Hold VARYING EXCEPTIONALITIES TEACHER amoxicillin
- Speech eval ordered
- Started on low dose steroids prednisone 20mg x 5days
# A-fib status post ICD
- Continue VARYING EXCEPTIONALITIES TEACHER Eliquis
# HFrEF status post ICD
- Echo 2021: EF 30-35%
- Continue GDMT
- ProBNP 4460, troponin negative
# CKD stage III
- Mildly elevated Cr, 1.2 today
- Continue to trend
# Anemia of chronic disease
- Hgb stable
# History of endocarditis (Enterococcus bioprosthetic mitral valve)
- Hold VARYING EXCEPTIONALITIES TEACHER amoxicillin
# Inflammatory bowel disease
-Continue mesalamine and loperamide
# Hypothyroidism
- Continue home meds
# Glaucoma
-continue Xalatan eyedrops
DVT prophylaxis- Eliquis
DNR
Anticipated Discharge: 24 - 48 hours
Subjective/Interval History
-
Date of Service: October 09, 2024
Patient continues to cough but denies fever.
Objective Data
-
Labs:
Laboratory Results
10/09/24
06:46
WBC 15.5 H
Hgb 10.6 L
Hct 31.8 L
Plt Count 200
Sodium 135
Potassium 5.1
Chloride 109 H
Carbon Dioxide 18 L
BUN 44 H
Creatinine 1.2 H
Glucose 132 H
Calcium 9.5
Vital Signs:
Vital Signs
Temp Pulse Resp BP Pulse Ox
97.4 F 71 17 123/62 90
10/09/24 07:47 10/09/24 08:23 10/09/24 07:47 10/09/24 08:23 10/09/24 07:47
I&O
10/08/24 10/09/24 10/10/24
06:59 06:59 06:59
Intake Total 240 / 240
Balance 240 / 240
Review of Systems
-
All other systems: Reviewed and negative
Physical Exam
-
General: No Apparent Distress
HEENT: Normocephalic and Atraumatic
Respiratory: Wheezes and Decreased Breath Sounds
Cardiac: Regular Rhythm and S1/S2
GI: Soft, Nontender and Nondistended
Musculoskeletal: No Cyanosis and No Edema
Skin: Warm and Dry
Neuro: Awake, Alert and Oriented
Psych: Calm
--- NOTE | 2024-10-09 12:12 | PTOTSP ---
Dysphagia Eval
Suspect functional oral/pharyngeal swallowing based on clinical bedside swallow evaluation. Cannot fully r/o intermittent non-productive baseline cough from current RML PNA from s/s of aspiration w/ PO intake bedside. Patient denied sensation of
present or prior dysphagia and denied signs of aspiration complications such as repeated URI/PNAs.
Recommend:
1. Regular, Thin
2. Meds as best tolerated
3. General aspiration and reflux precautions
4. If concerned for component of aspiration consider instrumental swallowing assessment as appropriate. Otherwise will sign off.
5. Registered dietitian consult given patient report of weight loss (15 pounds in 6 months) and poor appetite w/ acute illness
[2024-10-09] MEDS: VITAMIN D3 (cholecalciferol) 25 MCG PO (12:26)
[2024-10-09] MEDS: ROCEPHIN 1000 MG IV (12:28)
[2024-10-09] MEDS: STERILE WATER FOR INJECTION 10 ML IV (12:28)
[2024-10-09] MEDS: NON-FORMULARY ITEM PO (12:37)
--- NOTE | 2024-10-09 13:44 | CM ---
Patient seen bedside.
Patient lives at [facility] Independent Living.
Patient independent prior to admission.
Ambulates with a cane.
Patient currently on oxygen which is new.
Patient does not drive.
Patient did not receive physical therapy at [facility].
PCP: Jeramie
Pharmacy: [facility]
Plan: Back to [facility], daughter will transport.
No needs anticipated.
--- NOTE | 2024-10-09 13:54 | W.PN.UPDATE ---
Addendum entered and electronically signed by Janice Croft MD 10/10/24 18:03:
severe protein Calorie Malnutrition
Original Note:
Update Note
Progress Note Update
I saw and evaluated the patient. I reviewed the resident�s note and agree with findings and plan as documented in the resident�s note except for changes in my documentation
88-year-old with cough and dyspnea
CVS: S1-S2 normal, diastolic Mr at AA
Chest: short exp wheezes, few rales, decreased BS
Abdomen: Soft, NT / Bowel sounds present
Extremities: No edema
# Cough with dyspnea
Treating as sepsis secondary to community-acquired pneumonia also acute bronchitis
Acute hypoxic respiratory insufficiency
Chest x-ray-right middle lobe opacification
Sputum cultures and blood cultures
Continue ceftriaxone and doxycycline
Add low dose steroids
Speech evaluation
# Leukocytosis
# Mild hyperkalemia resolved
# Paroxysmal atrial fibrillation-s/p post PVI 09/25/20, AV node ablation 01/2021-continue Eliquis and Coreg
# Chronic HFrEF with history of pacer/Medtronic BIV ICD placement with generator change
Echo 2021 with EF 30 to 35%
proBNP 4460
Troponin negative
Continue daily Lasix 20 mg, lisinopril 2.5 mg, Coreg 6.25 mg 3 times daily, Aldactone 25 mg along with potassium supplement
# CKD stage III-follow creatinine
# Anemia of chronic disease
# Inflammatory bowel disease-on mesalamine 4.8 g at night along with loperamide as needed for diarrhea
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
doxycycline and ceftriaxone
# Status post partial thyroidectomy.
# History of breast cancer with lumpectomy and radiation
# Glaucoma-continue Xalatan eyedrops
# DVT prophylaxis-Eliquis
# DNR
Part of this note was created using voice recognition system. Occasional wrong word or��sound alike� substitutions may have inadvertently occurred due to the inherent limitations of voice recognition software. If noted kindly bring it to my
attention for correction.
[2024-10-09] MEDS: DELTASONE 20 MG PO (15:58)
[2024-10-09] MEDS: COREG PO (16:01)
[2024-10-09] MEDS: ZESTRIL PO (18:06)
[2024-10-09] MEDS: NON-FORMULARY ITEM 4.8 GRAMS PO (18:06)
[2024-10-09] MEDS: LIPITOR 20 MG PO (18:06)
[2024-10-09] MEDS: ALDACTONE 25 MG PO (18:09)
[2024-10-09] MEDS: XALATAN OPHTHALMIC SOLUTION 1 DROP BOTH EYES (22:46)
[2024-10-09] MEDS: MELATONIN 5 MG PO (22:46)
[2024-10-10] VITALS (7 sets, daily range): BP systolic 104–132; BP diastolic 53–67; BMI 15.9
--- NOTE | 2024-10-10 07:33 | W.PN.HOSP.TC ---
Addendum entered and electronically signed by Janice Croft MD 10/10/24 13:37:
I saw and evaluated the patient. I reviewed the resident�s note and agree with findings and plan as documented in the resident�s note except for changes in my documentation
88-year-old with cough and dyspnea
CVS: S1-S2 normal, diastolic Mr at AA
Chest: short exp wheezes, few rales, decreased BS
Abdomen: Soft, NT / Bowel sounds present
Extremities: No edema
# Cough with dyspnea
Treating as sepsis secondary to community-acquired pneumonia also acute bronchitis
Acute hypoxic respiratory insufficiency
Chest x-ray-right middle lobe opacification
Sputum cultures and blood cultures, Added Mucolytics
Continue ceftriaxone and doxycycline
Add low dose steroids
Speech evaluation
# Leukocytosis- Resolved
# Mild hyperkalemia -Lokelma and Low K diet
# Paroxysmal atrial fibrillation-s/p post PVI 09/25/20, AV node ablation 01/2021-continue Eliquis and Coreg
# Chronic HFrEF with history of pacer/Medtronic BIV ICD placement with generator change
Echo 2021 with EF 30 to 35%
proBNP 4460
Troponin negative
Continue daily Lasix 20 mg, lisinopril 2.5 mg, Coreg 6.25 mg 3 times daily, Aldactone 25 mg . Stopped K suppliment.
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
doxycycline and ceftriaxone
# CKD stage III-follow creatinine
# Anemia of chronic disease
# Inflammatory bowel disease-on mesalamine 4.8 g at night along with loperamide as needed for diarrhea
# Status post partial thyroidectomy.
# History of breast cancer with lumpectomy and radiation
# Glaucoma-continue Xalatan eyedrops
# DVT prophylaxis-Eliquis
# DNR
Part of this note was created using voice recognition system. Occasional wrong word or��sound alike� substitutions may have inadvertently occurred due to the inherent limitations of voice recognition software. If noted kindly bring it to my
attention for correction.
Original Note:
Today's Communication/Plan
-
Continue Abx
Continue short term steroid course
Wean O2
started ventolin nebs
Assessment / Plan
Assessment / Plan
Impression:88 y/o female with past medical history of permanent A-fib and HFrEF status post ICD placement, previous endocarditis on amoxicillin 500 bid, CKD stage III and hypothyroidism presenting to the emergency department from her independent
living at [facility] for evaluation of productive cough, shortness of breath and generalized weakness/fatigue.
Plan:
# Cough and dyspnea secondary to CAP and acute bronchitis
- Currently on 2L O2 via NC, wean as able
- CXR 10/08: right middle lobe opacification suspicious for pneumonia
- Flu, COVID negative
- Sputum Cx pending
- Bcx negative
- Continue ceftriaxone and doxy
- Hold SECONDS INSPECTOR amoxicillin for hx of endocarditis
- Speech eval pending
- Continue prednisoe 40mg until 10/13
- Started ventolin nebs, acapella
# A-fib status post ICD
- Continue SECONDS INSPECTOR Eliquis
# HFrEF status post ICD
- Echo 2021: EF 30-35%
- Continue GDMT
- ProBNP 4460, troponin negative
# CKD stage III
- stable
- Continue to trend
# Anemia of chronic disease
- Hgb stable
# History of endocarditis (Enterococcus bioprosthetic mitral valve)
- Hold SECONDS INSPECTOR amoxicillin
# Inflammatory bowel disease
-Continue mesalamine and loperamide
# Hypothyroidism
- Continue home meds
# Glaucoma
-continue Xalatan eyedrops
DVT prophylaxis- Eliquis
DNR
Anticipated Discharge: 24 - 48 hours
Subjective/Interval History
-
Date of Service: October 10, 2024
Patient continues to be have bouts of coughing though denies any fevers. She is resting in bed comfortably.
Objective Data
-
Labs:
Laboratory Results
10/10/24
07:27
WBC Pending
Hgb Pending
Hct Pending
Plt Count Pending
Sodium Pending
Potassium Pending
Chloride Pending
Carbon Dioxide Pending
BUN Pending
Creatinine Pending
Glucose Pending
Calcium Pending
Vital Signs:
Vital Signs
Temp Pulse Resp BP Pulse Ox
97.7 F 72 18 121/53 98
10/10/24 07:05 10/10/24 07:05 10/10/24 07:05 10/10/24 07:05 10/10/24 07:05
I&O
10/09/24 10/10/24 10/11/24
06:59 06:59 06:59
Intake Total 240 / 240 1030 / 1030
Balance 240 / 240 1030 / 1030
Review of Systems
-
All other systems: Reviewed and negative
Physical Exam
-
General: No Apparent Distress and Conversant
HEENT: Normocephalic and Atraumatic
Respiratory: Clear to Auscultation
Cardiac: Regular Rhythm and S1/S2
GI: Soft, Nontender and Nondistended
Musculoskeletal: No Cyanosis and No Edema
Skin: Warm and Dry
Neuro: Awake, Alert and Oriented
Psych: Calm
[2024-10-10 08:28] LABS: % Basophils 0.1 % (0-2); % Immature Granulocytes 0.4 % (0-0.5); % Lymphocytes 5.7 % (20.5-51.1); % Monocytes 4.5 % (1.7-9.3); % Neutrophils 89.3 % (42.2-75.2); Absolute Lymphocytes 0.5 10^3/uL (1.2-3.4); Absolute Monocytes 0.4 10^3/uL (0.1-0.6); Absolute Neutrophils 8.2 10^3/uL (1.4-6.5); Hematocrit 31.7 % (37.0-47.0); Hemoglobin 10.6 g/dL (12.0-16.0); Mean Corp Hgb Conc. 33.4 g/dL (33.0-37.0); Mean Corpuscular Hgb 31.7 pg (27.0-31.0); Mean Corpuscular Volume 94.9 fL (81.0-99.0); Mean Platelet Volume 9.8 fL (7.4-10.4); Nucleated Red Blood Cells % 0 %; Platelet Count 205 10^3/uL (130-400); Red Blood Cell Count 3.34 10^6/uL (4.20-5.40); Red Cell Dist. Width 14.4 % (11.5-14.5); White Blood Cell Count 9.2 10^3/uL (4.8-10.8)
[2024-10-10] MEDS: ULTRAM 50 MG PO ×2 (08:50→21:28)
[2024-10-10] MEDS: COREG 6.25 MG PO ×3 (08:51→21:28)
[2024-10-10] MEDS: ELIQUIS 2.5 MG PO ×2 (08:51→21:29)
[2024-10-10] MEDS: ENTOCORT EC 3 MG PO (08:51)
[2024-10-10] MEDS: VIBRAMYCIN 100 MG PO ×2 (08:51→21:29)
[2024-10-10] MEDS: FOLVITE 1 MG PO (08:51)
[2024-10-10 09:10] LABS: Blood Urea Nitrogen 43 mg/dl (7-17); Calcium 9.3 mg/dl (8.4-10.2); Carbon Dioxide 21 mmol/L (22-30); Chloride 107 mmol/L (98-107); Estimated Creatinine Clearance 27 ml/min; Glucose 118 mg/dl (70-99); Potassium 5.4 mmol/L (3.5-5.1); Sodium 134 mmol/L (135-145); eGFR 54.19
[2024-10-10] MEDS: LASIX 20 MG PO (10:09)
[2024-10-10] MEDS: DELTASONE 40 MG PO (10:11)
[2024-10-10] MEDS: DELTASONE PO (10:20)
--- NOTE | 2024-10-10 11:26 | CM ---
Patient seen at bedside
Resident of [facility]
Patient on room air
PT/OT to eval
PLAN: PT/OT pending
--- NOTE | 2024-10-10 11:41 | PN.CDI ---
CDI
- -
CDI:
Physician Documentation Request
Admit Date: 10/08/24 13:35
Dear Doctor Cornelia,
10/09 RD notes and assessment state '10% change in 6 month, underweight. Subcutaneous loss over rib cage moderate, muscle loss over calf-moderate, clavicle -severe....RD able to visulize temporal wasting, protrusion of clavical, apparent ribs, calf
muscle wasting.... With weight loss > 10% in 6 months and observed muscle and fat wasting pt meets AND/ASPEN criteria for moderate protein calorie malnutrition of chronic malnutrition of chronic illness'
Based on the above information and your assessment, which of the following most accurately represents the patient's nutritional status?
Moderate Malnutrition
Other (please specify)
[place] Criteria ([facility] Hospitalist 2017)
2 or more criteria must be present for either
non severe or severe malnutrition
Note that the criteria differs related to the
presence of an acute or chronic illness
Acute Illness Chronic Illness
Energy Intake Non Severe: <75% for >7 days Non Severe: <75% for >1 month
Severe: <50% for >5 days Severe: <75% for >1 month
Weight Loss Non Severe: 1-2% over 1 week Non Severe: 5% over 1 month
5% over 1 month 7.5% over 3 months
7.5% over 3 months 10% over 6 months
1 year N/A 20% over 1 year
Severe: >2% over 1 week Severe: >5% over 1 month
>5% over 1 month >7.5% over 3 months
>7.5% over 3 months >10% over 6 months
1 year N/A >20% over 1 year
Body Fat Non Severe: Mild Decrease Non Severe: Mild Loss
Severe: Moderate Decrease Severe: Severe Loss
Muscle Mass Non Severe: Mild Decrease Non Severe: Mild Loss
Severe: Moderate Decrease Severe: Severe Loss
Fluid Accumulation Non Severe: Mild Accumulation Non Severe: Mild Accumulation
Severe: Moderate to severe Severe: Moderate to severe
accumulation accumulation
Reduced Flux Core Welder Strength Non Severe: N/A Non Severe: N/A
Severe: Measurably reduced Severe: Measurably reduced
Use of terms such as suspected, likely, concern for, or probable (associated with a specific diagnosis that is being evaluated, monitored, or treated as if it exists) are acceptable and can be coded in the inpatient setting, when documented at the
time of discharge.
Thank you,
Betty Burton RN, BSN
CDI Specialist
tiger text
Please use your independent medical judgment in providing your response.
[2024-10-10] MEDS: ROCEPHIN 1000 MG IV (12:47)
[2024-10-10] MEDS: STERILE WATER FOR INJECTION 10 ML IV (12:47)
[2024-10-10] MEDS: LOKELMA 10 GRAM PO (12:48)
[2024-10-10] MEDS: TYLENOL 1000 MG PO (13:19)
[2024-10-10] MEDS: MUCINEX 600 MG PO ×2 (15:17→21:29)
[2024-10-10] MEDS: VITAMIN D3 (cholecalciferol) 25 MCG PO (15:17)
[2024-10-10] MEDS: ALDACTONE 25 MG PO (18:22)
[2024-10-10] MEDS: NON-FORMULARY ITEM 4.8 GRAMS PO (18:23)
[2024-10-10] MEDS: ZESTRIL 2.5 MG PO (18:23)
[2024-10-10] MEDS: LIPITOR 20 MG PO (18:23)
[2024-10-10] MEDS: XALATAN OPHTHALMIC SOLUTION 1 DROP BOTH EYES (21:29)
[2024-10-10] MEDS: MELATONIN 5 MG PO (21:29)
[2024-10-11] VITALS (7 sets, daily range): BP systolic 109–140; BP diastolic 48–69; PULSE 75; O2SAT 94–98; BMI 15.8
[2024-10-11 07:39] LABS: Blood Urea Nitrogen 44 mg/dl (7-17); Carbon Dioxide 21 mmol/L (22-30); Chloride 107 mmol/L (98-107); Estimated Creatinine Clearance 27 ml/min; Glucose 100 mg/dl (70-99); Potassium 5.1 mmol/L (3.5-5.1); Sodium 136 mmol/L (135-145); eGFR 54.19
--- NOTE | 2024-10-11 07:39 | W.PN.HOSP.TC ---
Addendum entered and electronically signed by Janice Croft MD 10/11/24 15:44:
I saw and evaluated the patient. I reviewed the resident�s note and agree with findings and plan as documented in the resident�s note.
ECHO -normal LV size. Mild to moderate LVH. Normal LVSF. Paradoxical septal motion. EF 50 to 55%. Bioprosthetic mitral valve. Trace MR. Thickened aortic valve. Calcified aortic valve. Moderate AI. Moderate TR. PA pressure 36 mmHg.
Patient still has a cough but off oxygen
Lung exam with better air entry noted.
Continue antibiotics and steroids for inflammation
Patient needs to go to rehab case management arranging this
Original Note:
Today's Communication/Plan
-
continue abx
Assessment / Plan
Assessment / Plan
Impression:88 y/o female with past medical history of permanent A-fib and HFrEF status post ICD placement, previous endocarditis on amoxicillin 500 bid, CKD stage III and hypothyroidism presenting to the emergency department from her independent
living at [facility] for evaluation of productive cough, shortness of breath and generalized weakness/fatigue.
Plan:
# Cough and dyspnea secondary to CAP and acute bronchitis
- CXR 10/08: right middle lobe opacification suspicious for pneumonia
- Flu, COVID negative
- Sputum Cx pending
- Bcx negative
- Continue ceftriaxone and doxy
- Hold BRAKE SPECIALIST amoxicillin for hx of endocarditis
- Speech eval- regular diet with thin liquids
- Continue prednisoe 40mg
- Started ventolin nebs, acapella
- PT/OT recommended SNF at discharge
- dispo likely tomorrow
# A-fib status post ICD
- Continue BRAKE SPECIALIST Eliquis
# HFrEF status post ICD
- Echo 2021: EF 30-35%
- Continue GDMT
- ProBNP 4460, troponin negative.
- echo today: LV ejection fraction is 50 to 55% Normal left ventricular size. Mild to moderate left ventricular hypertrophy.
Normal left ventricular systolic function.
# CKD stage III
- stable
- Continue to trend
# Anemia of chronic disease
- Hgb stable
# History of endocarditis (Enterococcus bioprosthetic mitral valve)
- Hold BRAKE SPECIALIST amoxicillin
# Inflammatory bowel disease
-Continue mesalamine and loperamide
# Hypothyroidism
- Continue home meds
# Glaucoma
-continue Xalatan eyedrops
#Moderate Malnutrition likely due to chronic illness
DVT prophylaxis- Eliquis
DNR
Anticipated Discharge: 24 - 48 hours
Subjective/Interval History
-
Date of Service: October 11, 2024
Patient is resting in bed but continues to have cough.
No fever or vomiting.
Objective Data
-
Labs:
Laboratory Results
10/11/24
06:38
Sodium Pending
Potassium Pending
Chloride Pending
Carbon Dioxide Pending
BUN Pending
Creatinine Pending
Glucose Pending
Calcium Pending
Vital Signs:
Vital Signs
Temp Pulse Resp BP Pulse Ox
97.9 F 78 18 113/60 97
10/11/24 03:55 10/11/24 03:55 10/11/24 03:55 10/11/24 03:55 10/11/24 03:55
I&O
10/10/24 10/11/24 10/12/24
06:59 06:59 06:59
Intake Total 1030 / 1030 1140 / 1140
Balance 1030 / 1030 1140 / 1140
Review of Systems
-
All other systems: Reviewed and negative
Physical Exam
-
General: Comfortable and Appears Chronically Ill
HEENT: Normocephalic and Atraumatic
Respiratory: Clear to Auscultation
Cardiac: Regular Rhythm and S1/S2
GI: Soft, Nontender and Nondistended
Musculoskeletal: No Cyanosis and No Edema
Skin: Warm and Dry
Neuro: Awake, Alert and Oriented
Psych: Calm
[2024-10-11] MEDS: MUCINEX 600 MG PO ×2 (07:55→21:39)
[2024-10-11] MEDS: DELTASONE 40 MG PO (07:55)
[2024-10-11] MEDS: VIBRAMYCIN 100 MG PO ×2 (07:55→21:39)
[2024-10-11] MEDS: ENTOCORT EC 3 MG PO (07:55)
[2024-10-11] MEDS: ELIQUIS 2.5 MG PO ×2 (07:55→21:39)
[2024-10-11] MEDS: ULTRAM 50 MG PO ×2 (07:56→21:40)
[2024-10-11] MEDS: LASIX 20 MG PO (07:56)
[2024-10-11] MEDS: FOLVITE 1 MG PO (07:56)
[2024-10-11] MEDS: COREG 6.25 MG PO ×3 (07:59→21:40)
[2024-10-11 08:50] LABS: % Basophils 0.1 % (0-2); % Immature Granulocytes 0.7 % (0-0.5); % Lymphocytes 8.5 % (20.5-51.1); % Monocytes 6.6 % (1.7-9.3); % Neutrophils 84.1 % (42.2-75.2); Absolute Immature Granulocytes 0.1 10^3/uL (0-0.05); Absolute Lymphocytes 0.8 10^3/uL (1.2-3.4); Absolute Monocytes 0.6 10^3/uL (0.1-0.6); Absolute Neutrophils 8.2 10^3/uL (1.4-6.5); Hematocrit 30.8 % (37.0-47.0); Hemoglobin 10.2 g/dL (12.0-16.0); Mean Corp Hgb Conc. 33.1 g/dL (33.0-37.0); Mean Corpuscular Hgb 31.4 pg (27.0-31.0); Mean Corpuscular Volume 94.8 fL (81.0-99.0); Mean Platelet Volume 9.6 fL (7.4-10.4); Nucleated Red Blood Cells % 0 %; Platelet Count 227 10^3/uL (130-400); Red Blood Cell Count 3.25 10^6/uL (4.20-5.40); Red Cell Dist. Width 14.2 % (11.5-14.5); White Blood Cell Count 9.7 10^3/uL (4.8-10.8)
--- NOTE | 2024-10-11 11:10 | WOUNDNOTE ---
[facility] RN note: Patient seen during pressure injury prevention rounds. Patient's sacrum is intact. She moves self and transfers to chair independently. Air chair cushion given. Patient is very thin. Instructed patient to take air chair cushion when
discharged. Po intake documented between 25-100%
--- NOTE | 2024-10-11 11:59 | CM ---
Patient seen at bedside
PT/OT rec SNF
Options reviewed - prefers [facility]
Referral placed to [facility]
Spoke with son Samson & updated
Will need to obtain ins auth
PLAN: SNF, pending acceptance/bed availability when stable
[2024-10-11] MEDS: STERILE WATER FOR INJECTION 10 ML IV (12:29)
[2024-10-11] MEDS: VITAMIN D3 (cholecalciferol) 25 MCG PO (12:29)
[2024-10-11] MEDS: ROCEPHIN 1000 MG IV (12:30)
[2024-10-11] MEDS: LIPITOR 20 MG PO (18:03)
[2024-10-11] MEDS: ZESTRIL 2.5 MG PO (18:05)
[2024-10-11] MEDS: ALDACTONE 25 MG PO (18:06)
[2024-10-11] MEDS: TYLENOL 1000 MG PO (18:08)
[2024-10-11] MEDS: NON-FORMULARY ITEM 4.8 GRAMS PO (18:09)
[2024-10-11] MEDS: MELATONIN 5 MG PO (21:40)
[2024-10-11] MEDS: XALATAN OPHTHALMIC SOLUTION 1 DROP BOTH EYES (21:40)
[2024-10-12 06:00] VITALS: BMI 15.8
[2024-10-12 07:15] LABS: Blood Urea Nitrogen 50 mg/dl (7-17); Carbon Dioxide 22 mmol/L (22-30); Chloride 107 mmol/L (98-107); Estimated Creatinine Clearance 25 ml/min; Glucose 88 mg/dl (70-99); Potassium 4.8 mmol/L (3.5-5.1); Sodium 136 mmol/L (135-145); eGFR 48.33
[2024-10-12] MEDS: ULTRAM 50 MG PO ×2 (08:00→19:49)
--- NOTE | 2024-10-12 08:00 | W.PN.HOSP.TC ---
Addendum entered and electronically signed by Janice Croft MD 10/12/24 15:37:
I saw and evaluated the patient. I reviewed the resident�s note and agree with findings and plan as documented in the resident�s note except for changes in my documentation
88-year-old with cough and dyspnea
CVS: S1-S2 normal, diastolic Mr at AA
Chest: CTA
Abdomen: Soft, NT / Bowel sounds present
Extremities: No edema
# Cough with dyspnea
Treating as sepsis secondary to Pseudomonas pneumonia also acute bronchitis
Acute hypoxic respiratory insufficiency-Off O2
Chest x-ray-right middle lobe opacification
Sputum cultures with pseudomonas
change AB to Levaquin
Continue low dose steroids
Speech evaluation noted - No aspiration.
# Leukocytosis
# Mild hyperkalemia resolved
# Paroxysmal atrial fibrillation-s/p post PVI 09/25/20, AV node ablation 01/2021-continue Eliquis and Coreg
# Chronic HFrEF with history of pacer/Medtronic BIV ICD placement with generator change
Echo 2021 with EF 30 to 35%
proBNP 4460
Troponin negative
Continue daily Lasix 20 mg, lisinopril 2.5 mg, Coreg 6.25 mg 3 times daily, Aldactone 25 mg along with potassium supplement
# CKD stage III-follow creatinine
# Anemia of chronic disease
# Inflammatory bowel disease-on mesalamine 4.8 g at night along with loperamide as needed for diarrhea
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
Levaquin
# Status post partial thyroidectomy.
# History of breast cancer with lumpectomy and radiation
# Glaucoma-continue Xalatan eyedrops
# DVT prophylaxis-Eliquis
# DNR
Called son - and updated.
Part of this note was created using voice recognition system. Occasional wrong word or��sound alike� substitutions may have inadvertently occurred due to the inherent limitations of voice recognition software. If noted kindly bring it to my
attention for correction.
Original Note:
Today's Communication/Plan
-
Doxy upon discharge to finish 2 more days for total 7 day course
restart amoxicillin on discharge after finishing doxy course
prednisone taper on dc
Assessment / Plan
Assessment / Plan
Impression:88 y/o female with past medical history of permanent A-fib and HFrEF status post ICD placement, previous endocarditis on amoxicillin 500 bid, CKD stage III and hypothyroidism presenting to the emergency department from her independent
living at [facility] for evaluation of productive cough, shortness of breath and generalized weakness/fatigue.
Plan:
# Cough and dyspnea secondary to CAP and acute bronchitis
- CXR 10/08: right middle lobe opacification suspicious for pneumonia
- Flu, COVID negative
- Bcx negative
- Continue ceftriaxone and doxy
- Will transition to only doxycycline on discharge for 3 days
- restart RN TELEPHONIC amoxicillin for hx of endocarditis after finishing doxy course
- Speech eval- regular diet with thin liquids
- Continue prednisoe 40mg change to prednisone taper upon discharge
- Started ventolin nebs, acapella
- PT/OT recommended SNF at discharge
- dispo pending on SNF placement
# A-fib status post ICD
- Continue RN TELEPHONIC Eliquis
# HFrEF status post ICD
- Echo 2021: EF 30-35%
- Continue GDMT
- ProBNP 4460, troponin negative.
- echo 10/12: LV ejection fraction is 50 to 55% Normal left ventricular size. Mild to moderate left ventricular hypertrophy. Normal left ventricular systolic function.
- potassium supplement discontinued
# CKD stage III
- stable
- Continue to trend
# Anemia of chronic disease
- Hgb stable
# History of endocarditis (Enterococcus bioprosthetic mitral valve)
- restart RN TELEPHONIC amoxicillin upon discharge after finished doxy course
# Inflammatory bowel disease
-Continue mesalamine and loperamide
# Hypothyroidism
- Continue home meds
# Glaucoma
-continue Xalatan eyedrops
#Moderate Malnutrition likely due to chronic illness
DVT prophylaxis- Eliquis
DNR
Anticipated Discharge: 24 - 48 hours
Subjective/Interval History
-
Date of Service: October 12, 2024
Patient has mild cough but otherwise is resting comfortably in bed.
Objective Data
-
Labs:
Laboratory Results
10/12/24
06:34
Sodium 136
Potassium 4.8
Chloride 107
Carbon Dioxide 22
BUN 50 H
Creatinine 1.1 H
Glucose 88
Calcium 10.0
Vital Signs:
Vital Signs
Temp Pulse Resp BP Pulse Ox
97.8 F 71 18 123/59 95
10/11/24 23:00 10/11/24 23:00 10/11/24 23:00 10/11/24 23:00 10/11/24 23:00
I&O
10/11/24 10/12/24 10/13/24
06:59 06:59 06:59
Intake Total 1140 / 1140 1230 / 1230
Balance 1140 / 1140 1230 / 1230
Review of Systems
-
All other systems: Reviewed and negative
Physical Exam
-
General: No Apparent Distress and Comfortable
HEENT: Normocephalic and Atraumatic
Respiratory: Clear to Auscultation and Non Labored Respirations
Cardiac: Regular Rhythm and S1/S2
GI: Soft, Nontender and Nondistended
Musculoskeletal: No Cyanosis and No Edema
Skin: Warm and Dry
Neuro: Awake, Alert and Oriented
Psych: Calm
[2024-10-12] MEDS: MUCINEX 600 MG PO ×2 (08:01→19:49)
[2024-10-12] MEDS: DELTASONE 40 MG PO (08:01)
[2024-10-12] MEDS: VIBRAMYCIN 100 MG PO (08:01)
[2024-10-12] MEDS: ENTOCORT EC 3 MG PO (08:01)
[2024-10-12] MEDS: LASIX 20 MG PO (08:02)
[2024-10-12] MEDS: ELIQUIS 2.5 MG PO ×2 (08:02→19:50)
[2024-10-12 08:03] VITALS: BP 147/70
[2024-10-12] MEDS: COREG 6.25 MG PO ×3 (08:03→23:21)
[2024-10-12] MEDS: FOLVITE 1 MG PO (08:05)
--- NOTE | 2024-10-12 09:48 | CM ---
Spoke with Nory at [facility]
no bed available today
CM to call Nory for bed avail tomorrow
Spoke to daughter Susy-wants [facility] since she is from [place]
discussed transportation - she is be agreeable with [facility] if needed
Will need to obtain insurance auth
PLAN: SNF, pending bed availability, will need to obtain ins auth
[2024-10-12] MEDS: VITAMIN D3 (cholecalciferol) 25 MCG PO (11:53)
[2024-10-12] MEDS: STERILE WATER FOR INJECTION 10 ML IV (11:55)
[2024-10-12] MEDS: ROCEPHIN 1000 MG IV (11:55)
[2024-10-12] MEDS: LEVAQUIN 500 MG PO (14:22)
[2024-10-12 15:41] VITALS: BP 120/52
[2024-10-12] MEDS: VENTOLIN NEBULES 2.5 MG INH ×2 (16:11→19:28)
[2024-10-12] MEDS: LIPITOR 20 MG PO (17:35)
[2024-10-12] MEDS: NON-FORMULARY ITEM 4.8 GRAMS PO (17:36)
[2024-10-12] MEDS: ZESTRIL 2.5 MG PO (17:42)
[2024-10-12] MEDS: ALDACTONE 25 MG PO (17:46)
[2024-10-12] MEDS: TYLENOL 1000 MG PO ×2 (17:48→23:21)
[2024-10-12 20:17] VITALS: BP 101/54
[2024-10-12] MEDS: MELATONIN 5 MG PO (23:21)
[2024-10-12] MEDS: XALATAN OPHTHALMIC SOLUTION 1 DROP BOTH EYES (23:24)
[2024-10-13] VITALS (8 sets, daily range): BP systolic 105–137; BP diastolic 46–71; PULSE 74–81; O2SAT 92–96; BMI 15.8
[2024-10-13 07:26] LABS: Blood Urea Nitrogen 56 mg/dl (7-17); Calcium 10.1 mg/dl (8.4-10.2); Carbon Dioxide 19 mmol/L (22-30); Chloride 106 mmol/L (98-107); Estimated Creatinine Clearance 25 ml/min; Glucose 85 mg/dl (70-99); Potassium 4.9 mmol/L (3.5-5.1); Sodium 135 mmol/L (135-145); eGFR 48.33
[2024-10-13] MEDS: VENTOLIN NEBULES 2.5 MG INH ×4 (07:29→18:08)
--- NOTE | 2024-10-13 07:46 | W.PN.HOSP.TC ---
Addendum entered and electronically signed by Janice Croft MD 10/13/24 15:12:
I saw and evaluated the patient. I reviewed the resident�s note and agree with findings and plan as documented in the resident�s note except for changes in my documentation
88-year-old with cough and dyspnea
CVS: S1-S2 normal, diastolic Mr at AA
Chest: CTA
Abdomen: Soft, NT / Bowel sounds present, Rectal heme neg brown stool
Extremities: No edema
# Patient had a soft loose bowel movement. Reviewed by me no blood. Rectal heme-negative. Hemoglobin stable.
# Cough with dyspnea
Treating as sepsis secondary to Pseudomonas pneumonia also acute bronchitis
Acute hypoxic respiratory insufficiency-Off O2
Chest x-ray-right middle lobe opacification
Sputum cultures with pseudomonas
changed AB to Levaquin
Continue low dose steroids
Speech evaluation noted - No aspiration.
# Leukocytosis
# Mild hyperkalemia resolved
# Paroxysmal atrial fibrillation-s/p post PVI 09/25/20, AV node ablation 01/2021-continue Eliquis and Coreg
# Chronic HFrEF with history of pacer/Medtronic BIV ICD placement with generator change
ECHO as above
proBNP 4460
Troponin negative
Continue daily Lasix 20 mg, lisinopril 2.5 mg, Coreg 6.25 mg 3 times daily, Aldactone 25 mg along with potassium supplement
# CKD stage III-follow creatinine
# Anemia of chronic disease
# Inflammatory bowel disease-on mesalamine 4.8 g at night along with loperamide as needed for diarrhea
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
Levaquin
# Status post partial thyroidectomy.
# History of breast cancer with lumpectomy and radiation
# Glaucoma-continue Xalatan eyedrops
# DVT prophylaxis-Eliquis
# DNR
Discussed with case management
Discussed with nursing at bedside
Part of this note was created using voice recognition system. Occasional wrong word or��sound alike� substitutions may have inadvertently occurred due to the inherent limitations of voice recognition software. If noted kindly bring it to my
attention for correction.
Original Note:
Today's Communication/Plan
-
continue levaquin
Assessment / Plan
Assessment / Plan
Impression:88 y/o female with past medical history of permanent A-fib and HFrEF status post ICD placement, previous endocarditis on amoxicillin 500 bid, CKD stage III and hypothyroidism presenting to the emergency department from her independent
living at [facility] for evaluation of productive cough, shortness of breath and generalized weakness/fatigue.
Plan:
# Cough and dyspnea secondary to CAP and acute bronchitis
- CXR 10/08: right middle lobe opacification suspicious for pneumonia
- Flu, COVID negative
- Bcx negative
- restart MOTION PICTURE DIRECTOR amoxicillin for hx of endocarditis after finishing levaquin course
- Speech eval- regular diet with thin liquids
- Continue prednisoe 40mg change to prednisone taper upon discharge
- Continue ventolin nebs, acapella
- PT/OT recommended SNF at discharge
- sputum culture with pseudomonas
- continue levaquin upon discharge as well for total of 7 days
-Dispo to SNF likely tomorrow
# A-fib status post ICD
- Continue MOTION PICTURE DIRECTOR Eliquis
#Bloody stool episode
� Bloody stool noticed on pad as per nursing
� Hemoccult test negative
-no hx of hemorrhoids
- Hb 10.8 and hct 31.7
-Unlikely to be any new GI bleed, will monitor
# HFrEF status post ICD
- Echo 2021: EF 30-35%
- Continue GDMT
- ProBNP 4460, troponin negative.
- echo 10/12: LV ejection fraction is 50 to 55% Normal left ventricular size. Mild to moderate left ventricular hypertrophy. Normal left ventricular systolic function.
- potassium supplement discontinued
# CKD stage III
- stable
- Continue to trend
# Anemia of chronic disease
- Hgb stable
# History of endocarditis (Enterococcus bioprosthetic mitral valve)
- restart MOTION PICTURE DIRECTOR amoxicillin upon discharge after finished levaquin course
# Inflammatory bowel disease
-Continue mesalamine and loperamide
# Hypothyroidism
- Continue home meds
# Glaucoma
-continue Xalatan eyedrops
#Moderate Malnutrition likely due to chronic illness
DVT prophylaxis- Eliquis
DNR
Anticipated Discharge: 24 - 48 hours
Subjective/Interval History
-
Date of Service: October 13, 2024
Patient was sitting up in chair comfortably. She does say she is feeling a bit better than yesterday.
Objective Data
-
Labs:
Laboratory Results
10/13/24
06:37
Sodium 135
Potassium 4.9
Chloride 106
Carbon Dioxide 19 L
BUN 56 H
Creatinine 1.1 H
Glucose 85
Calcium 10.1
Vital Signs:
Vital Signs
Temp Pulse Resp BP Pulse Ox
97.8 F 76 17 135/71 97
10/13/24 04:07 10/13/24 04:07 10/13/24 04:07 10/13/24 04:07 10/13/24 04:07
I&O
10/12/24 10/13/24 10/14/24
06:59 06:59 06:59
Intake Total 1230 / 1230 200 / 200
Balance 1230 / 1230 200 / 200
Review of Systems
-
All other systems: Reviewed and negative
Physical Exam
-
General: No Apparent Distress and Comfortable
HEENT: Normocephalic and Atraumatic
Respiratory: Clear to Auscultation and Non Labored Respirations
Cardiac: Regular Rhythm and S1/S2
GI: Soft, Nontender and Nondistended
Musculoskeletal: No Cyanosis and No Edema
Skin: Warm and Dry
Neuro: Awake, Alert and Oriented
Psych: Calm
[2024-10-13] MEDS: LEVAQUIN 250 MG PO (08:08)
[2024-10-13] MEDS: COREG 6.25 MG PO ×2 (08:08→16:03)
[2024-10-13] MEDS: ULTRAM 50 MG PO ×2 (08:08→20:53)
[2024-10-13] MEDS: DELTASONE 40 MG PO (08:08)
[2024-10-13] MEDS: ENTOCORT EC 3 MG PO (08:08)
[2024-10-13] MEDS: LASIX 20 MG PO (08:09)
[2024-10-13] MEDS: MUCINEX 600 MG PO ×2 (08:09→20:53)
[2024-10-13] MEDS: ELIQUIS 2.5 MG PO ×2 (08:09→20:53)
[2024-10-13] MEDS: FOLVITE 1 MG PO (08:09)
[2024-10-13 09:32] LABS: Hematocrit 31.7 % (37.0-47.0); Hemoglobin 10.8 g/dL (12.0-16.0)
[2024-10-13] MEDS: VITAMIN D3 (cholecalciferol) 25 MCG PO (11:48)
--- NOTE | 2024-10-13 13:36 | CM ---
Addendum entered by Christine Leary 10/13/24 14:46:
Authorization still pending.
Plan: [facility] once auth received.
Report# [phone]
fax# [phone]
IMM completed.
Original Note:
No bed available at [facility] today.
[facility] has a bed available tomorrow, insurance auth initiated.
[facility] NPI# [id number]
Accepting MD Amber Urban, NPI# [id number]
Pending reference# [id number]
[2024-10-13] MEDS: PROTONIX 40 MG PO (16:03)
[2024-10-13] MEDS: DELTASONE 30 MG PO (16:04)
[2024-10-13] MEDS: LIPITOR 20 MG PO (17:54)
[2024-10-13] MEDS: ZESTRIL 2.5 MG PO (17:54)
[2024-10-13] MEDS: NON-FORMULARY ITEM 4.8 GRAMS PO (17:54)
[2024-10-13] MEDS: ALDACTONE 25 MG PO (17:54)
[2024-10-13] MEDS: TYLENOL 1000 MG PO (17:56)
[2024-10-13] MEDS: MELATONIN 5 MG PO (20:56)
[2024-10-13] MEDS: COREG PO (20:56)
[2024-10-13] MEDS: XALATAN OPHTHALMIC SOLUTION 1 DROP BOTH EYES (20:56)
[2024-10-14 01:21] VITALS: BP 100/45
[2024-10-14 04:04] VITALS: BP 105/48
[2024-10-14 06:00] VITALS: BMI 15.4
[2024-10-14 07:00] VITALS: BP 124/59
[2024-10-14] MEDS: VENTOLIN NEBULES 2.5 MG INH ×2 (07:41→11:21)
[2024-10-14] MEDS: DELTASONE 30 MG PO (08:50)
[2024-10-14] MEDS: ULTRAM 50 MG PO (08:50)
[2024-10-14] MEDS: MUCINEX 600 MG PO (08:50)
[2024-10-14] MEDS: LASIX 20 MG PO (08:50)
[2024-10-14] MEDS: LEVAQUIN 250 MG PO (08:50)
[2024-10-14] MEDS: COREG 6.25 MG PO (08:51)
[2024-10-14] MEDS: ENTOCORT EC 3 MG PO (08:51)
[2024-10-14] MEDS: ELIQUIS 2.5 MG PO (08:51)
[2024-10-14] MEDS: PROTONIX 40 MG PO (08:51)
[2024-10-14] MEDS: FOLVITE 1 MG PO (08:51)
--- NOTE | 2024-10-14 09:20 | CM ---
[facility] left message [facility]a approved [facility] Reference# [id number] from 10/14/24 to 10/17/24.prep person Nory UGARTE fax to [phone]. CM notified of auth.
--- NOTE | 2024-10-14 09:55 | W.PN.HOSP.TC ---
Today's Communication/Plan
-
Discharge
Assessment / Plan
Assessment / Plan
88-year-old with cough and dyspnea
CVS: S1-S2 normal, diastolic Mr at AA
Chest: CTA
Abdomen: Soft, NT / Bowel sounds present, Rectal heme neg brown stool
Extremities: No edema
# Cough with dyspnea
Treating as sepsis secondary to Pseudomonas pneumonia also acute bronchitis
Acute hypoxic respiratory insufficiency-Off O2
Chest x-ray-right middle lobe opacification
Sputum cultures with pseudomonas
changed AB to Levaquin
Continue low dose steroids
Speech evaluation noted - No aspiration.
# Leukocytosis
# Mild hyperkalemia resolved
# Paroxysmal atrial fibrillation-s/p post PVI 09/25/20, AV node ablation 01/2021-continue Eliquis and Coreg
# Chronic HFrEF with history of pacer/[employer] BIV ICD placement with generator change
ECHO as above
proBNP 4460
Troponin negative
Continue daily Lasix 20 mg, lisinopril 2.5 mg, Coreg 6.25 mg 3 times daily, Aldactone 25 mg along with potassium supplement
# CKD stage III-follow creatinine
# Anemia of chronic disease
# Inflammatory bowel disease-on mesalamine 4.8 g at night along with loperamide as needed for diarrhea
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
# Status post partial thyroidectomy.
# History of breast cancer with lumpectomy and radiation
# Glaucoma-continue Xalatan eyedrops
# DVT prophylaxis-Eliquis
# DNR
Discussed with case management
Discussed with nursing
More than 30 minutes spent in discharge including
Final examination of the patient
Summarizing hospital stay
Instructions for continuing care to all relevant caregivers
Preparation of discharge records, prescriptions, and referral forms
Total time spent (in minutes): 33 min
Part of this note was created using voice recognition system. Occasional wrong word or��sound alike� substitutions may have inadvertently occurred due to the inherent limitations of voice recognition software. If noted kindly bring it to my
attention for correction.
Anticipated Discharge: Today
Subjective/Interval History
-
Date of Service: October 14, 2024
Objective Data
-
Vital Signs:
Vital Signs
Temp Pulse Resp BP Pulse Ox
97.4 F 66 18 124/59 93
10/14/24 04:04 10/14/24 07:58 10/14/24 07:58 10/14/24 07:00 10/14/24 07:58
I&O
10/13/24 10/14/24 10/15/24
06:59 06:59 06:59
Intake Total 200 / 200 660 / 660
Balance 200 / 200 660 / 660
--- NOTE | 2024-10-14 10:00 | W.DS.TRANS ---
Addendum entered and electronically signed by Janice Croft MD 10/15/24 18:00:
Dictation- [id number]
Original Note:
DC Summary - Information And Referral Director
-
Discharge Instructions:
Sleep Apnea Risk Low
Discharge Diagnosis/Procedures Pseudomonas pneumonia
Acute bronchitis
Paroxysmal atrial fibrillation
Chronic HFrEF
CKD stage III
Anemia
IBD
History of Enterococcus bioprosthetic mitral
valve endocarditis history of breast cancer
Glaucoma
Diet 2 Gram Sodium,Restrict fluids to 64 oz
Activity As tolerated
Blood Work cbc, bmp 4 days
Others Tests chest X ray 6 weeks, PFTs as OP
Other Services PT,OT
Specialty Instructions Weigh Daily
Instructions:
Stand-Alone Forms:
Changes to Home Medications: Yes
Discharge Medications:
DC Medications w/original date entered in [employer]
latanoprost 0.005 % eye drops 1 drp BOTH EYES HS Eye condition 02/09/17
multivitamin with folic acid 400 mcg tablet (Tab-A-Angelina) 1 tab PO NOON Supplement 06/08/17
folic acid 1 mg tablet 1 mg PO DAILY Supplement 04/18/21
amoxicillin 500 mg capsule 500 mg PO BID Infection/endocarditis 08/05/21
carvedilol 6.25 mg tablet 6.25 mg PO TID Blood pressure 30 days #90 tabs 08/09/21
biotin 1 mg tablet 1 mg PO NOON Supplement 11/09/22
cholecalciferol (vitamin D3) 25 mcg (1,000 unit) tablet (Vitamin D3) 25 mcg PO NOON Supplement 11/09/22
lisinopril 2.5 mg tablet 2.5 mg PO QPM Blood Pressure 11/10/22
spironolactone 25 mg tablet 25 mg PO QPM Fluid Retention/Swelling 11/10/22
apixaban 2.5 mg tablet 2.5 mg PO BID Blood Clot Prevention/Tx 02/03/24
loperamide 2 mg capsule 2 mg PO DAILYPRN PRN diarrhea 02/03/24
melatonin 5 mg tablet 5 mg PO HS Sleep 02/03/24
mesalamine 1.2 gram tablet,delayed release 4.8 g PO QPM inflammatory bowel 02/03/24
tramadol 50 mg tablet 50 mg PO BID Pain 02/03/24
acetaminophen 500 mg tablet 1,000 mg PO Q4H PRN mild pain 10/08/24
budesonide 3 mg capsule,delayed,extended release 3 mg PO DAILY inflammatory bowel 10/08/24
furosemide 20 mg tablet 20 mg PO DAILY Fluid Retention/Swelling 10/08/24
Saccharomyces boulardii 250 mg capsule (Florastor) 250 mg PO BID Supplement #20 caps 10/13/24
albuterol sulfate 2.5 mg/3 mL (0.083 %) solution for nebulization 2.5 mg (3 mL) inhalation R QID Lung/breathing issues #0 mL 10/13/24
atorvastatin 20 mg tablet 20 mg PO QPM High cholesterol 30 days #30 tabs 10/13/24
guaifenesin 600 mg tablet, extended release 12 hr 600 mg PO Q12 Lung/breathing issues #0 tabs 10/13/24
levofloxacin 250 mg tablet 250 mg PO DAILY Infection 7 days #6 tabs 10/13/24
pantoprazole 40 mg tablet,delayed release 40 mg PO DAILY Gastrointestinal issue #0 tabs 10/13/24
prednisone 10 mg tablet See Rx Instructions .Route .COMPLEX Lung/breathing issues #30 tabs 10/13/24
Home Medication Changes
Prednisone, Protonix, Levaquin, Mucinex are new
Pending Results: No
[2024-10-14 11:00] VITALS: BP 120/93
[2024-10-14] MEDS: AMOXIL 500 MG PO (11:33)
[2024-10-14] MEDS: FLORASTOR 250 MG PO (11:33)
[2024-10-14] MEDS: VITAMIN D3 (cholecalciferol) 25 MCG PO (13:03)
--- NOTE | 2024-10-14 15:17 | CM ---
Pt for dc today to [facility]. Auth information provided to facility. Will be transported to [facility] via ambulance.
== END 2024-10-14 14:43 | DRG 871 ==
LOC: 3 WEST ACU 13:35
PROVIDERS: Physician Assistant Medical; Student in an Organized Health Care Education/Training Program; ADMITTING PHYSICIAN Internal Medicine; ATTENDING PHYSICIAN Hospitalist; EMERGENCY PHYSICIAN Emergency Medicine; FAMILY PHYSICIAN Internal Medicine Geriatric Medicine
DX: A41.52 Sepsis due to Pseudomonas (principal); E43 Unspecified severe protein-calorie malnutrition; J15.1 Pneumonia due to Pseudomonas; I13.0 Hypertensive heart and chronic kidney disease with heart failure and stage 1 through stage 4 chronic kidney disease, or unspecified chronic kidney disease; I42.9 Cardiomyopathy, unspecified; I48.21 Permanent atrial fibrillation; I50.22 Chronic systolic (congestive) heart failure; N17.9 Acute kidney failure, unspecified; Z68.1 Body mass index [BMI] 19.9 or less, adult; K92.1 Melena; K21.9 Gastro-esophageal reflux disease without esophagitis; E03.9 Hypothyroidism, unspecified; E78.00 Pure hypercholesterolemia, unspecified; H26.9 Unspecified cataract; H40.9 Unspecified glaucoma; N18.30 Chronic kidney disease, stage 3 unspecified; R09.02 Hypoxemia; G89.29 Other chronic pain; M54.9 Dorsalgia, unspecified; D63.8 Anemia in other chronic diseases classified elsewhere; E87.5 Hyperkalemia; I25.10 Atherosclerotic heart disease of native coronary artery without angina pectoris; M19.90 Unspecified osteoarthritis, unspecified site; I34.0 Nonrheumatic mitral (valve) insufficiency; J20.9 Acute bronchitis, unspecified; D72.829 Elevated white blood cell count, unspecified; I35.8 Other nonrheumatic aortic valve disorders; K52.3 Indeterminate colitis; R06.89 Other abnormalities of breathing; Z60.2 Problems related to living alone; Z66 Do not resuscitate; Z96.653 Presence of artificial knee joint, bilateral; I25.2 Old myocardial infarction; Z86.79 Personal history of other diseases of the circulatory system; Z95.810 Presence of automatic (implantable) cardiac defibrillator; Z90.710 Acquired absence of both cervix and uterus; Z95.3 Presence of xenogenic heart valve; Z11.52 Encounter for screening for COVID-19; Z85.3 Personal history of malignant neoplasm of breast; Z92.3 Personal history of irradiation
CPT/HCPCS: 71046; 80048; 80053; 83880; 84484; 85014; 85018; 85025; 87040; 87070; 87077; 87186; 87205; 87502; 87811; 92610; 93005; 93288; 93306; 94640; 96374; 97116; 97163; 97167; 97530; 97535; 99285

== ENCOUNTER → 2024-10-18 11:18 | Outpatient (REF) | payer MEDICARE, SELFPAY ==
[2024-10-18 12:55] LABS: Hematocrit 28.7 % (37.0-47.0); Hemoglobin 9.5 g/dL (12.0-16.0); Mean Corp Hgb Conc. 33.1 g/dL (33.0-37.0); Mean Corpuscular Hgb 31.1 pg (27.0-31.0); Mean Corpuscular Volume 94.1 fL (81.0-99.0); Mean Platelet Volume 10.1 fL (7.4-10.4); Platelet Count 187 10^3/uL (130-400); Red Blood Cell Count 3.05 10^6/uL (4.20-5.40); Red Cell Dist. Width 14.3 % (11.5-14.5); White Blood Cell Count 10.9 10^3/uL (4.8-10.8)
[2024-10-18 13:25] LABS: Blood Urea Nitrogen 49 mg/dl (7-17); Calcium 9.2 mg/dl (8.4-10.2); Carbon Dioxide 21 mmol/L (22-30); Chloride 108 mmol/L (98-107); Glucose 65 mg/dl (70-99); Potassium 4.2 mmol/L (3.5-5.1); Sodium 135 mmol/L (135-145); eGFR 43.27
== END ==
LOC: OLABP 11:18
PROVIDERS: ATTENDING PHYSICIAN Family Medicine
DX: J40 Bronchitis, not specified as acute or chronic (principal); J18.9 Pneumonia, unspecified organism; Z79.01 Long term (current) use of anticoagulants; E78.5 Hyperlipidemia, unspecified; K50.80 Crohn's disease of both small and large intestine without complications; I10 Essential (primary) hypertension; E87.70 Fluid overload, unspecified; R09.81 Nasal congestion; G47.00 Insomnia, unspecified
CPT/HCPCS: 36415; 80048; 85027

== ENCOUNTER → 2024-10-23 11:24 | Outpatient (REF) | payer OTHER, MEDICARE, SELFPAY ==
[2024-10-23 12:32] LABS: % Basophils 0.1 % (0-2); % Eosinophils 0.7 % (0-6); % Immature Granulocytes 0.6 % (0-0.5); % Lymphocytes 23.1 % (20.5-51.1); % Neutrophils 67.5 % (42.2-75.2); Absolute Eosinophils 0.1 10^3/uL (0-0.7); Absolute Immature Granulocytes 0.1 10^3/uL (0-0.05); Absolute Monocytes 0.7 10^3/uL (0.1-0.6); Absolute Neutrophils 5.8 10^3/uL (1.4-6.5); Hematocrit 26.8 % (37.0-47.0); Mean Corp Hgb Conc. 33.6 g/dL (33.0-37.0); Mean Corpuscular Hgb 31.8 pg (27.0-31.0); Mean Corpuscular Volume 94.7 fL (81.0-99.0); Mean Platelet Volume 10.4 fL (7.4-10.4); Nucleated Red Blood Cells % 0 %; Platelet Count 167 10^3/uL (130-400); Red Blood Cell Count 2.83 10^6/uL (4.20-5.40); Red Cell Dist. Width 14.9 % (11.5-14.5); White Blood Cell Count 8.5 10^3/uL (4.8-10.8)
[2024-10-23 13:13] LABS: Blood Urea Nitrogen 35 mg/dl (7-17); Carbon Dioxide 24 mmol/L (22-30); Chloride 110 mmol/L (98-107); Glucose 70 mg/dl (70-99); Potassium 4.1 mmol/L (3.5-5.1); Sodium 136 mmol/L (135-145); eGFR 53.85
== END ==
LOC: OLABP 11:24
PROVIDERS: ATTENDING PHYSICIAN Family Medicine
DX: J40 Bronchitis, not specified as acute or chronic (principal); J18.9 Pneumonia, unspecified organism; I01.1 Acute rheumatic endocarditis; Z79.01 Long term (current) use of anticoagulants; E78.5 Hyperlipidemia, unspecified; K50.819 Crohn's disease of both small and large intestine with unspecified complications; I10 Essential (primary) hypertension; E87.70 Fluid overload, unspecified; R09.81 Nasal congestion; G47.00 Insomnia, unspecified
CPT/HCPCS: 36415; 80048; 85025

== ENCOUNTER → 2024-10-27 09:32 | Outpatient (REF) | payer OTHER, MEDICARE, SELFPAY ==
[2024-10-27 11:22] LABS: Hematocrit 25.2 % (37.0-47.0); Hemoglobin 8.3 g/dL (12.0-16.0); Mean Corp Hgb Conc. 32.9 g/dL (33.0-37.0); Mean Corpuscular Hgb 32.3 pg (27.0-31.0); Mean Corpuscular Volume 98.1 fL (81.0-99.0); Mean Platelet Volume 10.3 fL (7.4-10.4); Platelet Count 147 10^3/uL (130-400); Red Blood Cell Count 2.57 10^6/uL (4.20-5.40); Red Cell Dist. Width 15.6 % (11.5-14.5)
[2024-10-27 11:41] LABS: Blood Urea Nitrogen 26 mg/dl (7-17); Calcium 8.8 mg/dl (8.4-10.2); Carbon Dioxide 25 mmol/L (22-30); Chloride 109 mmol/L (98-107); Glucose 77 mg/dl (70-99); Sodium 138 mmol/L (135-145); eGFR > 60.00
== END ==
LOC: OLABP 09:32
PROVIDERS: ATTENDING PHYSICIAN Family Medicine
DX: J40 Bronchitis, not specified as acute or chronic (principal); J18.9 Pneumonia, unspecified organism; I01.1 Acute rheumatic endocarditis; Z79.01 Long term (current) use of anticoagulants; E78.5 Hyperlipidemia, unspecified; K50.80 Crohn's disease of both small and large intestine without complications; I10 Essential (primary) hypertension; E87.70 Fluid overload, unspecified; R09.81 Nasal congestion; G47.00 Insomnia, unspecified
CPT/HCPCS: 36415; 80048; 85027

== ENCOUNTER → 2024-11-16 11:14 | Outpatient (REF) | payer MEDICARE, SELFPAY | LOC: RAD 11:14 | PROVIDERS: ATTENDING PHYSICIAN Internal Medicine Critical Care Medicine; FAMILY PHYSICIAN Internal Medicine Geriatric Medicine | DX: J18.9 Pneumonia, unspecified organism (principal) | CPT/HCPCS: 71046 ==